=== PATIENT | female | born 1950 | race Caucasian/White ===

== ENCOUNTER → 2018-04-30 | Outpatient (CLI) | payer MEDICARE, OTHER ==
--- NOTE | 2018-05-02 13:45 | PE ---
Nuclear medicine PET/CT HISTORY: Pulmonary nodule, initial Patient received 11.6 mCi F-18 FDG intravenously in delayed scanning was performed from the skull bas e to the mid thighs. Localization and attenuation correction CT scan was performed. No comparisons available Neck and chest: There is no evident adenopathy. Shotty nodes are present within the mediastinum. Ther e is a focus of hypermetabolic uptake corresponding to 11 mm apical soft tissue density in the left h emithorax, SUV 2.2. Irregular density in the left lower lobe measuring 18 mm in transverse dimension with some central lucency is noted, no significant associated hypermetabolic uptake however, SUV 1.8. This may be coursing along the fissure for at least a portion of its course. No evident pleural or p ericardial effusion. Distal esophagus shows an SUV of approximately 3 which is indeterminate Abdomen pelvis: No evident retroperitoneal mass. Adrenal glands show no mass, no suspicious hypermeta bolic uptake. No evident liver mass. Calcification associated with the uterus. There is a bulky appea javan to the uterus, cannot exclude endometrial fluid. Osseous structures: There is some uptake in the right shoulder possibly the level of the subscapulari s tendon near its insertion. IMPRESSION: Hypermetabolic uptake in the left lung apex is indeterminate, follow-up is recommended to assess for possible apical lung carcinoma. Esophageal uptake distally is also indeterminate, conside r endoscopy. Right shoulder obtained may be due to 2 partial rotator cuff tear, shoulder MRI may be o f benefit. Possible fibroid uterus, endometrial fluid, consider pelvic ultrasound, [employer]OR [employer] consult as ind icated. Additional lesion in the left lower lobe of the lung may be postinflammatory.
== END | disposition home or self-care (01) ==
LOC: RADPETMAIN 12:00
PROVIDERS: ATTEND Family Medicine
DX: R91.1 Solitary pulmonary nodule (principal)
CPT/HCPCS: 78815; A9552

== ENCOUNTER → 2018-05-03 | Outpatient (CLI) | payer MEDICARE, OTHER ==
--- NOTE | 2018-05-03 14:53 | MM ---
Reason for exam: follow-up at short interval from prior study. Last mammogram was performed 6 years and 6 months ago. History: Patient is postmenopausal. Family history of breast cancer in 2 paternal aunts at age 60. Physical Findings: Nurse did not find any significant physical abnormalities on exam. MG 3D Diag Mammo W/Cad RT CC and MLO view(s) were taken of the right breast. Prior study comparison: April 20, 2018, mammogram. October 23, 2011, bilateral digital screening mammo w/CAD. September 30, 2010, bilateral diagnostic digital mammog. Finding: There are typically benign round, diffuse/scattered and grouped calcifications in the right breast. No distinct suspicious cluster of microcalcifications persists on additional views. These results were verbally communicated with the patient and result sheet given to the patient on 05/03/18. ASSESSMENT: Benign, BI-RAD 2 RECOMMENDATION: Routine screening mammogram of both breasts in 1 year.
== END | disposition home or self-care (01) ==
LOC: RADMAMWWP 13:29
PROVIDERS: ATTEND Family Medicine
DX: R92.8 Other abnormal and inconclusive findings on diagnostic imaging of breast (principal)
CPT/HCPCS: 77065; G0279; 77061

== ENCOUNTER → 2018-08-17 | Outpatient (CLI) | payer MEDICARE, OTHER ==
--- NOTE | 2018-08-17 15:03 | CT ---
EXAMINATION TYPE: CT chest w con DATE OF EXAM: 08/17/2018 COMPARISON: PET/CT dated 04/30/2018 HISTORY: Follow up for lung mass seen on PET scan. CT DLP: 149.5 mGycm. Automated Exposure Control for Dose Reduction was Utilized. TECHNIQUE: CT scan of the thorax is performed following with IV Contrast, patient injected with 80 m L of Isovue 300. FINDINGS: LUNGS: As seen on the prior PET/CT there is an elongated centrally cystic density along the left inte rlobar fissure. Some internal bronchiectasis. This is elongated measuring 4.9 x 1.3 cm on coronal ser ies 7 image 74 and appears similar to the prior PET/CT where this did not demonstrate suspicious hype rmetabolic uptake. This is also seen on coronal series 6 image 49. Nodule along the left lung apex on series 4 image 5 is also present on coronal series 6 image 50 anai uring approximately 11 mm. This demonstrated equivocal uptake on the prior PET/CT. No current interva l growth. Stable left costophrenic angle solid nodule measures 4 mm on image 45. Right middle lobe pleural parenchymal scarring is seen. No focal consolidation, pleural effusion or p neumothorax. Main tracheobronchial tree is patent. There are mild background emphysematous changes. MEDIASTINUM: Ascending thoracic aorta is within normal limits of size measuring 3.2 cm. Aortic root m easures 3.3 cm, also within normal limits. Minimal coronary artery calcifications are present. Athero sclerosis is noted of the thoracic aorta and upper abdominal aorta that is overall mild in degree. Th ere are no greater than 1 cm hilar or mediastinal lymph nodes. No pericardial effusion is seen. OTHER: Focal cortical defect is seen of the posterior medial left kidney, likely from prior injury. P unctate gallbladder fundal cholelith is present. Nonspecific punctate hypoattenuated hepatic lesion i s seen near the hepatic dome on image 40. There is a very small hiatal hernia present. Minimal multil evel degenerative changes of the spine are seen. IMPRESSION: 1. Stable left apical pulmonary nodule and left costophrenic angle pulmonary nodule. Left apical pulm onary nodule is indeterminate on the recent PET/CT but has demonstrated stability from 04/30/2018. Cont inued short-term follow-up is recommended to establish long-term stability. 2. Multicystic somewhat cavitary density within the left lower lobe along the interlobar fissure with varicose bronchiectasis may be postinfectious or inflammatory and demonstrated no suspicious uptake on the recent PET/CT.
== END | disposition home or self-care (01) ==
LOC: RADCTMAIN 13:29
PROVIDERS: ATTEND Internal Medicine Pulmonary Disease
DX: R91.1 Solitary pulmonary nodule (principal); J44.9 Chronic obstructive pulmonary disease, unspecified
CPT/HCPCS: 82565; 84520; 71260; 36415; Q9967

== ENCOUNTER → 2019-03-22 | Outpatient (CLI) | payer MEDICARE, OTHER ==
[2019-03-22 11:12] LABS: Anion Gap 7 mmol/L; Blood Urea Nitrogen 19 mg/dL (7-17); Carbon Dioxide 28 mmol/L (22-30); Chloride 106 mmol/L (98-107); Potassium 3.9 mmol/L (3.5-5.1); Sodium 141 mmol/L (137-145)
[2019-03-22 11:25] LABS: Basophils # (A) 0.1 k/uL (0-0.2); Basophils % (A) 1 %; Eosinophils # (A) 0.2 k/uL (0-0.7); Eosinophils % (A) 2 %; HCT 47.5 % (34.0-46.0); HGB 15.1 gm/dL (11.4-16.0); Lymphocytes # (A) 3.3 k/uL (1.0-4.8); Lymphocytes % (A) 41 %; MCH 29.4 pg (25.0-35.0); MCHC 31.7 g/dL (31.0-37.0); MCV 92.8 fL (80.0-100.0); Mean Platelet Volume 7.3; Monocytes # (A) 0.3 k/uL (0-1.0); Monocytes % (A) 4 %; Neutrophils % (A) 50 %; Platelet Count 253 k/uL (150-450); RBC 5.12 m/uL (3.80-5.40); RDW 15.2 % (11.5-15.5); WBC 7.9 k/uL (3.8-10.6)
== END | disposition home or self-care (01) ==
LOC: LABPAT 10:00
PROVIDERS: ATTEND Obstetrics & Gynecology Obstetrics
DX: Z01.810 Encounter for preprocedural cardiovascular examination (principal); R19.09 Other intra-abdominal and pelvic swelling, mass and lump
CPT/HCPCS: 36415; 80051; 82565; 84520; 85025; 86850; 86900; 86901; 87086; 93005

== ENCOUNTER 2019-03-28 05:53 | Day surgery (SDC) | payer MEDICARE, OTHER ==
--- NOTE | 2019-03-24 10:15 | HP ---
HISTORY AND PHYSICAL Preoperative H and P for surgery on 03/28/2019. This is a pleasant female that presents to discuss the ultrasound findings. Patient is a known patient of Dr. Villegas. She had an ultrasound revealing a 3.6 x 3.0 x 3.6, solid right ovarian mass, initially noted in July of 2018 with negative ESE testing. She wished expectant management given the negative testing and presented again for followup ultrasound once again revealing this solid right ovarian mass. The patient wishes definitive treatment. The patient does have a history of bladder mesh that was performed years ago and a history of a left salpingo-oophorectomy for an ectopic years ago. The patient wishes hysterectomy with oophorectomy at the same time. PAST MEDICAL HISTORY: Patient's past medical history is significant for COPD, colon and bowel trouble, hyperlipidemia, and lupus. PAST SURGICAL HISTORY: 1. Appendectomy. 2. Bladder sling. 3. Cataract surgery. 4. Colonoscopy. 5. Hemorrhoid banding. 6. Neck lift. 7. Tonsillectomy. 8. Ectopic , exploratory laparoscopy. 9. Wrist surgery. MEDICATIONS: She is on vitamin D 50,000 units one capsule daily. ALLERGIES: No known drug allergies. No known environmental allergies. FAMILY MEDICAL HISTORY: She has a history of diabetes in her father, colon cancer in her mother and hyperlipidemia in her father. REPRODUCTIVE HISTORY: Last menstrual period was October of 1998. She is a 2, para 1-0-1-1. This delivery was in 1970 and vaginal and in 1973 when she had her ectopic . SOCIAL HISTORY: She is a current smoker. She denies alcohol or illicit drug use. REVIEW OF SYSTEMS: She denies body aches, night sweats, or weight loss. She denies diarrhea, constipation or bloody stools. She denies urinary urgency, frequency, dysuria or incontinence symptoms. She denies anxiety or depression. Vital signs were stable on this visit with a blood pressure of 120/68 and normal pulse. Weight of 135, BMI of 26. PHYSICAL EXAMINATION: On physical exam, she is a well-nourished, well-developed, alert female in no acute distress. Heart is noted to have a regular rate and rhythm. Lungs are clear to auscultation bilaterally. There is no lower extremity edema. ASSESSMENT: Ovarian mass, right. PLAN: Plan is for robotic assisted vaginal hysterectomy with right salpingo-oophorectomy, diagnostic cystoscopy with possible open procedure to complete. Risks were reviewed with the patient in detail including, but not limited to infection, bleeding, damage to bladder, bowel, ureteric or other pelvic structures. Patient states understanding of these risks and wishes to proceed. Surgery was scheduled with Matthew in our office and she will present on March 28 for robotic assisted vaginal hysterectomy, right salpingo- oophorectomy, diagnostic cystoscopy. MMODL / IJN: [id number] /
[~2019-03-28 05:53] MED LIST: DEXAMETHASONE SOD PHOSPHATE 10 MG/ML 1 ML VIAL IV ONE; MIDAZOLAM 2 MG/2 ML VIAL IV PRN; ONDANSETRON 4 MG/2 ML VIAL IVP ONE; SCOPOLAMINE 1.5MG/72HR PATCH TRANSDERM ONE; ceFAZolin IN SWFI 2 GM/20 ML SYRINGE IVP ONE
[2019-03-28] MEDS: LIDOCAINE 1% 20 ML VIAL (10MG/ML) FOR IV START INTRADERMA ONE ×2 (06:29→06:43)
[2019-03-28] MEDS: LACTATED RINGERS 1,000 ML IV SCH ×2 (06:29→06:42)
[2019-03-28] MEDS ORDERED: GLYCOPYRROLATE 0.2 MG/ML 2 ML VIAL ONE (07:32)
[2019-03-28] MEDS ORDERED: LIDOCAINE 1% INJ 10MG/ML (20 ML MDV) ONE (07:32)
[2019-03-28] MEDS ORDERED: NEOSTIGMINE 1 MG/ML 10 ML VIAL ONE (07:32)
[2019-03-28] MEDS ORDERED: fentaNYL (PF) 50 MCG/ML 2 ML AMP ONE (07:32)
[2019-03-28] MEDS ORDERED: ROCURONIUM BROMIDE 10 MG/ML 10 ML VIAL IV ONE (07:32)
[2019-03-28] MEDS ORDERED: MIDAZOLAM 2 MG/2 ML VIAL ONE (07:32)
[2019-03-28] MEDS ORDERED: PROPOFOL 10 MG/ML 20 ML VIAL IV ONE (07:32)
[2019-03-28] MEDS ORDERED: BUPIVACAINE (PF) 0.25% 30 ML VIAL SQ ONE (08:35)
[2019-03-28] MEDS ORDERED: LACTATED RINGERS 1,000 ML IV ONE (09:06)
[2019-03-28] MEDS ORDERED: IBUPROFEN 600 MG TAB PO PRN (09:13)
[2019-03-28] MEDS ORDERED: Acetaminophen-Codeine 300-30mg TAB PO PRN ×2 (09:13)
--- NOTE | 2019-03-28 09:13 | P.OP ---
Date of Procedure: 03/28/19 Preoperative Diagnosis: Pelvic mass Postoperative Diagnosis: Same Procedure(s) Performed: Robotic-assisted vaginal hysterectomy with right salpingo-oophorectomy, diagnostic cystoscopy Anesthesia: GETA Surgeon: Piper Tobar Cloth Worker #1: Asher Martínez Estimated Blood Loss (ml): 5 IV fluids (ml): 1,100 Urine output (ml): 1,500 Pathology: other (Uterus cervix right ovary and fallopian tube) Condition: stable Disposition: PACU Indications for Procedure: Solid right ovarian mass with negative Serenity testing Operative Findings: Enlarged right ovary freely mobile upper abdomen normal in nature left ovary is surgically absent from prior ectopic surgery, cystoscopy normal in nature Description of Procedure: Patient seen in the preoperative area and informed consent is obtained. Previously in the office she was consulted on the risks of surgery including but not limited to infection, bleeding, damage to bladder, bowel, other pelvic structures. Patient stated understanding and wished to proceed. Patient was taken operating suite where general anesthesia was obtained without difficulty by the anesthesia department. She was then prepped and draped in normal sterile fashion in the dorsal lithotomy position. Weighted speculum was placed in the posterior vaginal vault and a Orr catheter was placed under sterile technique. The endocervical canal was then dilated and a Promodity uterine manipulator was advanced into the uterus as a means to manipulate the uterus throughout the procedure. The cervical cath was placed snugly against the cervix and all instruments were removed from the patient's vaginal vault. Attention was then turned the patient's abdomen where 2 fingerbreadths above the umbilicus a small skin incision is made. Through this incision the Veress needle is placed. Once the Veress needle was deemed appropriate position with a drop of CO2 pressure with insufflation of CO2 gas CO2 insufflation was allowed to occur. Ap proximately 3 L of gas were used to obtain pneumoperitoneum. At this time the incision was elongated and a 12 mm trocar and sleeve is placed through the incision and toward the pneumoperitoneum with the laparoscope in place. Trocar was removed and the above-noted findings are visualized. At this time the additional port sites are placed at 10 cm lateral and 3 cm inferior to midline port these are millimeter ports and operative intervention machine. In the left upper quadrant a 12 mm trocar and sleeve is placed under direct visualization. At this time the da Bettie robot was docked in the usual fashion. The operative arms are now placed, and the right operative arm the monopolar scissors, in the left operative arm the bipolar forceps is placed. Attention was then turned to the patient's right infundibulopelvic ligament which was visualized coagulated distally and proximally divided this continued through the broad and toward the round which was coagulated distally and proximally divided. The bladder flap from the right was then created using sharp and blunt dissection. The ascending branch the uterine artery was visualized coagulated and transected hemostasis was appreciated. Attention was then turned to the patient's left round ligament as the left adnexa had been previously removed. The round ligament was ligated distally and proximally divided and the bladder flap was then created using sharp and blunt dissection. The ascending branch of the uterine artery was visualized coagulated and transected. Hemostasis was appreciated. At this time the only remaining attachment was a vaginal attachment therefore colpotomy incision was made in a circumferential fashion and the uterus right ovary and tube were delivered through the vaginal opening. The pelvis was then copiously irrigated and the vaginal cuff was then closed with [id number] sutures of 0 Vicryl. Hemostasis was appreciated. Once again the pelvis was copiously irrigated hemostasis was appreciated in all instruments were removed from the patient's abdomen. Attention was then turned the patient's vaginal vault the Orr catheter was removed and a cystoscopy was performed. The cystoscope was placed through the urethra and toward the bladder bladder bubble was noted the bladder was noted to be intact and both ureteral orifices were spilling clear yellow urine. The cystoscope was removed and a Orr catheter was replaced. Attention then turned the patient's abdomen where the skin incisions were closed with 4-0 Vicryl in a subcuticular fashion Steri-Strips and sterile dressings were applied as needed. All counts are correct 2 patient tolerated procedure well and was taken the recovery room awake in stable condition.
[2019-03-28] MEDS ORDERED: IBUPROFEN IV 800 MG in SODIUM CHLORIDE 0.9% 250 ML IV ONE (09:15)
[2019-03-28] MEDS: HYDROmorphone 0.5 MG/0.5 ML SYRINGE IVP PRN ×2 (09:40→09:45)
[2019-03-28 11:09] VITALS: BMI 27.3
[2019-03-28 23:33] VITALS: TEMP 98.4
[2019-03-29 04:15] VITALS: PULSE 57
[2019-03-29 07:03] LABS: Basophils % (A) 0 %; Eosinophils # (A) 0.1 k/uL (0-0.7); Eosinophils % (A) 1 %; HCT 39.9 % (34.0-46.0); HGB 12.6 gm/dL (11.4-16.0); Lymphocytes # (A) 3.1 k/uL (1.0-4.8); Lymphocytes % (A) 25 %; MCH 29.5 pg (25.0-35.0); MCHC 31.6 g/dL (31.0-37.0); MCV 93.3 fL (80.0-100.0); Mean Platelet Volume 7.3; Monocytes # (A) 0.5 k/uL (0-1.0); Monocytes % (A) 4 %; Neutrophils # (A) 8.8 k/uL (1.3-7.7); Neutrophils % (A) 70 %; Platelet Count 250 k/uL (150-450); RBC 4.27 m/uL (3.80-5.40); RDW 15.3 % (11.5-15.5); WBC 12.7 k/uL (3.8-10.6)
[2019-03-29 07:58] VITALS: BP 100/66; RESP 18
--- NOTE | 2019-03-29 08:25 | P.DS ---
Providers Date of admission: 03/28/2019 Expected date of discharge: 03/29/19 Attending physician: Piper Tobar Primary care physician: Adam Mendez - Discharge Diagnosis(es) (1) Pelvic mass Current Visit: Yes Status: Acute (2) S/P laparoscopic hysterectomy Current Visit: Yes Status: Acute Hospital Course: This is a very pleasant 68-year-old female that presented for robotic-assisted vaginal hysterectomy with right salpingo-oophorectomy yesterday 03/28. Patient underwent surgery without difficulty for details on the operation please see the operative report. Patient had a known right pelvic mass approximately 3 cm solid-appearing ovarian mass with negative Rudolph testing. She desired definitive treatment given size and solid in nature with hysterectomy. As stated above hysterotomy was preformed without difficulty. Patient's postoperative course has been uneventful. She is ambulating and voiding without difficulty on this postop day #1. She is tolerating a regular diet without nausea or vomiting. She denies vaginal bleeding. She denies pain. She does wish discharge home. Patient Condition at Discharge: Good Plan - Discharge Summary Discharge Rx Participant: Yes New Discharge Prescriptions: No Action Sulfamethox-Tmp 800-160Mg [Bactrim DS 800-160 mg] 1 tab PO MOWEFR Discharge Medication List Sulfamethox-Tmp 800-160Mg [Bactrim DS 800-160 mg] 1 tab PO MOWEFR 03/22/19 [History] Follow up Appointment(s)/Referral(s): Piper Tobar DO [Doctor of Osteopathic Medicine] - 2 Weeks Patient Instructions/Handouts: Laparoscopic Hysterectomy (DC), Laparoscopic Hysterectomy (GEN) Discharge Disposition: HOME SELF-CARE
[2019-03-29] MEDS ORDERED: SULFAMETHOX-TMP 800-160MG 1 EACH TAB PO SCH (09:00)
== END 2019-03-29 10:17 | disposition home or self-care (01) ==
LOC: OR 05:53 → 4FBP 09:16 → OR 03-29 10:17
PROVIDERS: ATTEND Obstetrics & Gynecology Obstetrics
DX: N94.9 Unspecified condition associated with female genital organs and menstrual cycle (principal); J44.9 Chronic obstructive pulmonary disease, unspecified; E78.5 Hyperlipidemia, unspecified; M32.9 Systemic lupus erythematosus, unspecified; Z98.890 Other specified postprocedural states; N85.8 Other specified noninflammatory disorders of uterus; D27.0 Benign neoplasm of right ovary; Z80.0 Family history of malignant neoplasm of digestive organs; Z83.3 Family history of diabetes mellitus; F17.210 Nicotine dependence, cigarettes, uncomplicated
CPT/HCPCS: 58550; S2900; 85025; 86850; 86900; 86901; 88309

== ENCOUNTER → 2019-05-29 | Outpatient (CLI) | payer MEDICARE, OTHER ==
--- NOTE | 2019-05-29 11:13 | CT ---
EXAMINATION TYPE: CT chest w con DATE OF EXAM: 05/29/2019 COMPARISON: Chest CT August 17, 2018. PET CT April 30, 2018 HISTORY: Follow up scan per patient CT DLP: 150.2 mGycm. Automated Exposure Control for Dose Reduction was Utilized. TECHNIQUE: CT scan of the thorax is performed following with IV Contrast, patient injected with 100 mL of Isovue 300. FINDINGS: LUNGS: There is stable 10 x 6 mm left apical nodular scarring axial image 7. There is stable anterior right mid to lower lung linear scarring or axial image 35. There is persistent linear scarring infer iorly in the left lung base. Just superior to this there is more focal honeycombing and scarring abut ting the major fissure in the anterior left lower lobe not significantly changed from prior CT and/or PET/CT. Additional linear scarring superior to this in the lingula and left lower lobe is redemonstr ated. No new nodules or masses are present. No pleural effusion or pneumothorax is seen. MEDIASTINUM: There are no new greater than 1 cm hilar or mediastinal lymph nodes. No cardiomegaly o r pericardial effusion is seen. OTHER: Mild multilevel spurring thoracic spine. IMPRESSION: Stable left lung findings favoring inflammatory change or scarring. No new suspicious nod ules or adenopathy.
== END | disposition home or self-care (01) ==
LOC: RADCTMAIN 09:15
PROVIDERS: ATTEND Internal Medicine
DX: J98.4 Other disorders of lung (principal); R91.8 Other nonspecific abnormal finding of lung field; Z72.0 Tobacco use
CPT/HCPCS: 82565; 84520; 71260; 36415; Q9967

== ENCOUNTER → 2019-06-28 | Outpatient (CLI) | payer MEDICARE, OTHER ==
--- NOTE | 2019-06-29 11:34 | MM ---
Reason for exam: screening (asymptomatic). Last mammogram was performed 1 year and 2 months ago. History: Patient is postmenopausal. Family history of breast cancer in 2 paternal aunts at age 60. Physical Findings: A clinical breast exam by your physician is recommended on an annual basis and results should be correlated with mammographic findings. MG 3D Screening Mammo W/Cad Bilateral CC and MLO view(s) were taken. Prior study comparison: May 03, 2018, right breast MG 3d diag mammo w/cad RT. April 20, 2018, mammogram. The breast tissue is extremely dense which could obscure a lesion on mammography. There are two groups of right calcifications in the upper central right breast at middle depth measuring 5mm and 6mm. Benign appearing left calcifications. Right central upper architectural distortion 5.5-6cm from nipple. ASSESSMENT: Incomplete: need additional imaging evaluation, BI-RAD 0 RECOMMENDATION: Special view mammogram of the right breast. If lesion persists on supplemental views, image directed ultrasound is recommended. [facility] will attempt to contact patient to return for supplemental views and ultrasound if indicated.
== END ==
LOC: RADMAMWWP 09:38
PROVIDERS: ATTEND Family Medicine
DX: Z12.31 Encounter for screening mammogram for malignant neoplasm of breast (principal)
CPT/HCPCS: 77063; 77067

== ENCOUNTER → 2019-08-04 | Outpatient (CLI) | payer MEDICARE, OTHER ==
--- NOTE | 2019-08-04 12:30 | MM ---
Reason for exam: additional evaluation requested from abnormal screening. Last mammogram was performed 1 month ago. History: Patient is postmenopausal. Family history of breast cancer in 2 paternal aunts at age 60. Physical Findings: Nurse Summary: 0.5cm nodule in the right breast at 12 o'clock (nurse kp). MG 3D Work Up W/Cad RT Spot compression CC, CC with magnification, LM with magnification, and LM view(s) were taken of the right breast. Prior study comparison: June 28, 2019, bilateral MG 3d screening mammo w/cad. May 03, 2018, right breast MG 3d diag mammo w/cad RT. The breast tissue is extremely dense which could obscure a lesion on mammography. There are two heterogeneous group of calcifications of the upper outer quadrant similar to 2018. These both measure 7mm on the right. Right distortion of the upper outer quadrant at 12 o'clock and 1 o'clock 6.8cm from nipple. These results were verbally communicated with the patient and result sheet given to the patient on 08/04/19. ASSESSMENT: Incomplete: need additional imaging evaluation, BI-RAD 0 RECOMMENDATION: Ultrasound of the right breast.
--- NOTE | 2019-08-04 12:34 | USB ---
Reason for exam: additional evaluation requested from abnormal screening. History: Patient is postmenopausal. Family history of breast cancer in 2 paternal aunts at age 60. US Breast Workup Limited RT Right limited breast ultrasound including focal area of concern, retroareolar and axilla demonstrates peaks of dense tissue appear as mass in one plane only. Dense heterogeneous tissue is seen with no certain sonographic correlate. Mammographic findings are suspicious and 3D biopsy is recommended of the distortion as well as the upper outer quadrant calcifications at middle depth. These results were verbally communicated with the patient and result sheet given to the patient on 08/04/19. ASSESSMENT: Suspicious, BI-RAD 4 RECOMMENDATION: Stereotactic core biopsy of the right breast. (x 2, lateral calcifications and medial distortion) Called Dr. Anaya office with mammographic findings. Office will fax reports to [facility] to contact patient with appointment. PRELIMINARY REPORT CALLED AND FAXED TO DR. ANAYA ON 08/04/19.
== END | disposition home or self-care (01) ==
LOC: RADMAMWWP 10:01
PROVIDERS: ATTEND Family Medicine
DX: R92.8 Other abnormal and inconclusive findings on diagnostic imaging of breast (principal)
CPT/HCPCS: 77065; 76642; G0279; 77061

== ENCOUNTER → 2019-10-12 | Outpatient (CLI) | payer MEDICARE, OTHER ==
[2019-10-12 13:57] VITALS: BP 138/78; PULSE 84; RESP 18; TEMP 97.7
--- NOTE | 2019-10-12 15:21 | P.GSHP ---
History of Present Illness H&P Date: 10/12/19 Chief Complaint: abnormal mammogram right breast/atypia on biopsy Berna is a 69-year-old white female who presents for breast evaluation, she is seen in consultation for Dr. Mendez. She had a bilateral mammogram performed in June 2019 for routine screening. On the mammogram there were 2 groups of right breast calcifications in the upper central breast. She was noted to have benign left breast calcifications. The patient had additional views of the right breast performed on [id number]. the patient had 2 areas in the right breast for which biopsy was recommended. One was an area of microcalcifications, and the second an area of distortion. That which was the area of distortion revealed atypical cells in the area of calcification revealed benign breast tissue.This was still felt to be incomplete and ultrasound of the right breast was recommended. On ultrasound including the focal area of concern, retroareolar and axilla demonstrated peaks of dense breast tissue. Mammographic findings were suspicious and 3-D biopsy related to the mammographic findings as well as the upper outer quadrant calcifications were recommended. Stereotactic core biopsy of the right breast 2 lateral calcifications and medial distortion was recommended. The patient subsequently underwent 3-D stereotactic core biopsy of the right breast on 1030 119. The irritable distortion upper outer quadrant middle depth is labeled #1. This revealed atypical ductal hyperplasia and features suggestive of a radial scar. The area labeled right breast #2 calcifications revealed florid ductal hyperplasia and fibrocystic change sclerosing adenosis with intraductal and stromal calcifications, no atypical hyperplasia or malignancy identified. The patient does not feel any masses lumps or nodules in either breast. She has no history of any trauma in her breasts. No history of any infection in her breast. No abnormal nipple discharge or skin changes. The mammogram was performed for screening. The patient was noted to have a pulmonary nodule in the left lung which has been stable for the last year and a half. computed tomography scan from May 2019 revealed the following.This is a 10 x 6 mm left apical nodular scarring area. There is persistent linear scarring inferiorly in the left lung base. Just superior to this. His multifocal honeycombing and scarring abutting the major fissure in the anterior left lower lobe not significantly changed from prior CT and a PET/CT. There were no greater than 1 cm hilar mediastinal lymph nodes. Family History: mother: colon cancer brother: kidney cancer paternal aunts (two): breast cancer maternal aunt: cancer Hormonal History: menarche: 11 , 1 tubal, breast fed: no, first born at 21 menopause: 49 BCP: none hormones: none Surgical history: Ectopic Appendectomy Hysterectomy Tonsillectomy Right breast medical history: colon polyps Social history: Smoke: 1/2 PPD 50 years alcohol: none drugs: none - Constitutional Constitutional: Denies chills, Denies fever - EENT Comment: glasses, cataracts bilateral Eyes: denies blurred vision, denies pain Ears: deny: decreased hearing, tinnitus Ears, nose, mouth and throat: Denies headache, Denies sore throat - Breasts Breasts: bilateral: as per HPI - Cardiovascular Cardiovascular: Reports shortness of breath, Denies chest pain - Respiratory Comment: smoker Respiratory: Reports cough - Gastrointestinal Gastrointestinal: Denies abdominal pain, Denies diarrhea, Denies nausea, Denies vomiting - Genitourinary (Female) Genitourinary: Denies dysuria, Denies hematuria - Menstruation Menstruation: Reports post hysterectomy - Musculoskeletal Comment: arthritis - Integumentary Comment: lupus - Neurological Neurological: Denies numbness, Denies weakness - Psychiatric Psychiatric: Denies anxiety, Denies depression - Endocrine Endocrine: Reports fatigue, Reports weight change - Hematologic/Lymphatic Comment: none - Allergic/Immunologic Allergic/Immunologic: Reports as per HPI Past Medical History Past Medical History: COPD, Hyperlipidemia Additional Past Medical History / Comment(s): has not yet started meds for lipids, hx of colon polyps, hx of frequent UTI, Hx shingles, states was told had COPD, does not use any RX History of Any Multi-Drug Resistant Organisms: None Reported Past Surgical History: Appendectomy, Bladder Surgery, Orthopedic Surgery, Tonsillectomy Additional Past Surgical History / Comment(s): left oopherectomy post tubal , rt wrist sx, alma rosa cataracts Past Anesthesia/Blood Transfusion Reactions: No Reported Reaction Past Psychological History: No Psychological Hx Reported Smoking Status: Current every day smoker Past Alcohol Use History: Occasional Additional Past Alcohol Use History / Comment(s): smokes 1/2 ppd from age 17 Past Drug Use History: None Reported - Past Family History Mother Family Medical History: Cancer Brother(s) Family Medical History: Cancer Additional Family Medical History / Comment(s): kidney Medications and Allergies Home Medications Medication Instructions Recorded Confirmed Type Sulfamethox-Tmp 800-160Mg [Bactrim 1 tab PO MOWEFR 03/22/19 10/12/19 History DS 800-160 mg] Multivitamin [Multivitamins Adult 1 each PO DAILY 10/12/19 10/12/19 History Gummies] Allergies Allergy/AdvReac Type Severity Reaction Status Date / Time adhesive tape AdvReac Rash/Hives Unverified 10/12/19 13:57 Surgical - Exam Vital Signs Temp Pulse Resp BP Pulse Ox 97.7 F 84 18 138/78 92 L 10/12/19 13:53 10/12/19 13:53 10/12/19 13:53 10/12/19 13:53 10/12/19 13:53 BMI 27.5 - General well developed, well nourished, no distress - Eyes normal ocular movement - ENT normal pinna, no hearing loss, no congestion - Neck no masses, trachea midline - Respiratory normal expansion, normal respiratory effort, clear to auscultation - Cardiovascular Rhythm: regular Heart Sounds: normal: S1, S2 - Abdomen Abdomen: soft, non tender, no guarding, no rigid, no rebound - Integumentary normal turgor - Neurologic no disoriented, no combative - Musculoskeletal normal gait, normal posture - Psychiatric oriented to time, oriented to person, oriented to place, speech is normal, memory intact breast exam: right breast: Multi-positional exam fibrocystic changes, right breast slightly smaller than left breast no dominant masses or nodules of concern Right axilla: No adenopathy of concern Left breast: Multi-positional exam fibrocystic changes, no dominant masses or notches of concern Left axilla: No adenopathy of concern BRA 36D ptosis grade2/3 Results mammogram and ultrasound results reviewed as well as pathology results Assessment and Plan Assessment: impression: 1. Mammographic abnormality right breast 2. core biopsy of 2 areas of concern in the right breast, densely revealed atypical cells, calcifications benign breast tissue. 3. Fibrocystic breast changes 4. Stable left pulmonary nodule followed by CT 5. Nicotine dependence 6.history of lupus 7. Question of cervical arthritis Plan: 1. Needle localization and excisional biopsy of area of atypia in the area of distortion of the right breast 2. Medical management of medical conditions Risk and benefits of procedure discussed with the patient and her friend. They understand and wish to proceed Cc: Dr. Andrea Dupont Encounter 45 minutes > 50% spent in counselling and planning
== END | disposition home or self-care (01) ==
LOC: WWCWWP 13:19
PROVIDERS: ATTEND Surgery
DX: Z53.9 Procedure and treatment not carried out, unspecified reason (principal)

== ENCOUNTER → 2019-12-07 | Outpatient (CLI) | payer MEDICARE, OTHER ==
[2019-12-07 13:16] VITALS: BP 146/78; PULSE 86; RESP 16; TEMP 98
--- NOTE | 2019-12-07 13:36 | P.PN ---
Subjective Progress Note Date: 12/07/19 Principal diagnosis: Atypical hyperplasia core biopsy right breast Berna is a 69-year-old white female who presents for breast evaluation, she is seen in consultation for Dr. Mendez. She had a bilateral mammogram performed in June 2019 for routine screening. On the mammogram there were 2 groups of right breast calcifications in the upper central breast. She was noted to have benign left breast calcifications. The patient had additional views of the right breast performed on [id number]. the patient had 2 areas in the right breast for which biopsy was recommended. One was an area of microcalcifications, and the second an area of distortion. That which was the a dm of distortion revealed atypical cells in the area of calcification revealed benign breast tissue.This was still felt to be incomplete and ultrasound of the right breast was recommended. On ultrasound including the focal area of concern, retroareolar and axilla demonstrated peaks of dense breast tissue. Mammographic findings were suspicious and 3-D biopsy related to the mammographic findings as well as the upper outer quadrant calcifications were recommended. Stereotactic core biopsy of the right breast 2 lateral calcifications and medial distortion was recommended. The patient subsequently underwent 3-D stereotactic core biopsy of the right breast on 1030 119. The irritable distortion upper outer quadrant middle depth is labeled #1. This revealed atypical ductal hyperplasia and features suggestive of a radial scar. The area labeled right breast #2 calcifications revealed florid ductal hyperplasia and fibrocystic change sclerosing adenosis with intraductal and stromal calcifications, no atypical hyperplasia or malignancy identified. The patient does not feel any masses lumps or nodules in either breast. She has no history of any trauma in her breasts. No history of any infection in her breast. No abnormal nipple discharge or skin changes. The mammogram was performed for screening. The patient was noted to have a pulmonary nodule in the left lung which has been stable for the last year and a half. computed tomography scan from May 2019 revealed the following.This is a 10 x 6 mm left apical nodular scarring area. There is persistent linear scarring inferiorly in the left lung base. Just superior to this. His multifocal honeycombing and scarring abutting the major fissure in the anterior left lower lobe not significantly changed from prior CT and a PET/CT. There were no greater than 1 cm hilar mediastinal lymph nodes. The area showing atypia is insight a biopsy which has a secure phcu placed The second biopsy site in the right breast is site to be which has a try phuc placed this showed ductal hyperplasia but no atypia or malignancy Family History: mother: colon cancer brother: kidney cancer paternal aunts (two): breast cancer maternal aunt: cancer Hormonal History: menarche: 11 , 1 tubal, breast fed: no, first born at 21 menopause: 49 BCP: none hormones: none Surgical history: Ectopic Appendectomy Hysterectomy Tonsillectomy Right breast medical history: colon polyps Social history: Smoke: 1/2 PPD 50 years alcohol: none drugs: none - Constitutional Constitutional: Denies chills, Denies fever - EENT Comment: glasses, cataracts bilateral Eyes: denies blurred vision, denies pain Ears: deny: decreased hearing, tinnitus Ears, nose, mouth and throat: Denies headache, Denies sore throat - Breasts Breasts: bilateral: as per HPI - Cardiovascular Cardiovascular: Reports shortness of breath, Denies chest pain - Respiratory Comment: smoker Respiratory: Reports cough - Gastrointestinal Gastrointestinal: Denies abdominal pain, Denies diarrhea, Denies nausea, Denies vomiting, colonoscopy October 23 told good for 5 years - Genitourinary (Female) Genitourinary: Denies dysuria, Denies hematuria - Menstruation Menstruation: Reports post hysterectomy - Musculoskeletal Comment: arthritis - Integumentary Comment: lupus - Neurological Neurological: Denies numbness, Denies weakness - Psychiatric Psychiatric: Denies anxiety, Denies depression - Endocrine Endocrine: Reports fatigue, Reports weight change - Hematologic/Lymphatic Comment: none - Allergic/Immunologic Allergic/Immunologic: Reports as per HPI Past Medical History Past Medical History: COPD, Hyperlipidemia Additional Past Medical History / Comment(s): has not yet started meds for lipids, hx of colon polyps, hx of frequent UTI, Hx shingles, states was told had COPD, does not use any RX History of Any Multi-Drug Resistant Organisms: None Reported Past Surgical History: Appendectomy, Bladder Surgery, Orthopedic Surgery, Tonsillectomy Additional Past Surgical History / Comment(s): left oopherectomy post tubal , rt wrist sx, alma rosa cataracts Past Anesthesia/Blood Transfusion Reactions: No Reported Reaction Past Psychological History: No Psychological Hx Reported Smoking Status: Current every day smoker Past Alcohol Use History: Occasional Additional Past Alcohol Use History / Comment(s): smokes 1/2 ppd from age 17 Past Drug Use History: None Reported Objective - Vital Signs Vital signs: Intake & Output 12/06/19 12/07/19 12/07/19 18:59 06:59 18:59 Weight 61.235 kg - Exam BMI 27.3 - Constitutional General appearance: Present: average body habitus - EENT Eyes: Present: EOMI ENT: Present: hearing grossly normal - Respiratory Respiratory: bilateral: CTA - Cardiovascular Rhythm: regular Heart sounds: normal: S1, S2 - Gastrointestinal General gastrointestinal: Present: normal bowel sounds, soft - Musculoskeletal Musculoskeletal: Present: gait normal - Psychiatric Psychiatric: Present: A&O x's 3, appropriate affect, intact judgment & insight - Additional findings Additional findings: breast exam: BRA 36D inspection: no skin lesions of concern, no nipple inversion Right breast: Multi-positional exam fibrocystic changes, right breast slightly smaller than the left breast, biopsy site no evidence of infection small hematoma Right axilla: No adenopathy of concern Left breast: Multi-positional exam fibrocystic changes no dominant masses or nodules of concern from examination of September 2019 left axilla: No adenopathy of concern Assessment and Plan Assessment: Impression: 1. Stereotactic core biopsy 2 areas of concern in the right breast, the site a revealed atypical cells this is marked with a secure phuc Site B reveal calcifications benign breast tissue this is marked with a try marked 2. Fibrocystic breast changes 3. Stable left pulmonary nodule being followed by CT 4. Nicotine dependence 5. History of lupus 6. Question of cervical arthritis Plan: 1. Needle localization and excisional biopsy of area of atypia in the area of distortion site a of the right breast, this is marked with a secure phuc 2. Medical management of medical conditions The skin benefits of the procedure discussed with the patient and her friend. Risks including bleeding and infection reaction to the anesthetic were discussed. Risk possibility of the needle moving and/or the area of concern not been sampled were discussed and that this could require further biopsy down the road. Patient understands and wishes to proceed. CC: Dipti Mcclendon [employer] encounter 20 minutes, > 50% of time in planning and counselling Time with Patient: Less than 30
== END | disposition home or self-care (01) ==
LOC: WWCWWP 12:43
PROVIDERS: ATTEND Surgery
DX: Z53.9 Procedure and treatment not carried out, unspecified reason (principal)

== ENCOUNTER 2019-12-19 07:05 | Day surgery (SDC) | payer MEDICARE, OTHER ==
[2019-12-18 08:47] VITALS: BMI 27.2
[~2019-12-19 07:05] MED LIST changes: +HEPARIN SODIUM,PORCINE 5,000 UNIT/ML 1 ML VIAL SQ ONE; +HYDROmorphone 0.5 MG/0.5 ML SYRINGE IVP PRN; +LACTATED RINGERS 1,000 ML IV SCH; +LIDOCAINE 1% 20 ML VIAL (10MG/ML) FOR IV START INTRADERMA PRN; -MIDAZOLAM 2 MG/2 ML VIAL IV PRN; +Pre Op ABX Message 1 EACH MISC MISCELLANE ONE; -ceFAZolin IN SWFI 2 GM/20 ML SYRINGE IVP ONE
[2019-12-19] MEDS ORDERED: ALPRAZolam 0.25 MG TAB PO ONE (07:45)
[2019-12-19 07:49] VITALS: RESP 16
[2019-12-19] MEDS ORDERED: LIDOCAINE 1% INJ 10MG/ML (20 ML MDV) SQ ONE ×2 (08:54→10:30)
[2019-12-19] MEDS ORDERED: ROCURONIUM BROMIDE 10 MG/ML 5 ML VIAL IV ONE (09:57)
[2019-12-19] MEDS ORDERED: fentaNYL (PF) 50 MCG/ML 2 ML AMP ONE (09:57)
[2019-12-19] MEDS ORDERED: MIDAZOLAM 2 MG/2 ML VIAL ONE (09:57)
[2019-12-19] MEDS ORDERED: NEOSTIGMINE 1 MG/ML 10 ML VIAL ONE (09:57)
[2019-12-19] MEDS ORDERED: PROPOFOL 10 MG/ML 20 ML VIAL IV ONE (09:57)
[2019-12-19] MEDS ORDERED: GLYCOPYRROLATE 0.2 MG/ML 2 ML VIAL ONE (09:57)
[2019-12-19] MEDS ORDERED: LIDOCAINE 1% INJ 10MG/ML (20 ML MDV) ONE (09:57)
[2019-12-19] MEDS ORDERED: DEXAMETHASONE SOD PHOS (MDV) 100 MG/10 ML VIAL ONE (09:57)
[2019-12-19] MEDS ORDERED: SUCCINYLCHOLINE CHLORIDE 100 MG/5 ML SYR IV ONE (09:57)
--- NOTE | 2019-12-19 11:07 | MM ---
EXAMINATION TYPE: MG pre op needle loc RT, MG surgical specimen RT DATE OF EXAM: 12/19/2019 COMPARISON: Outside biopsy dated 08/24/2019 and diagnostic mammogram dated 08/04/2019. CLINICAL HISTORY: Biopsy-proven upper inner quadrant radial scar of the right breast TECHNIQUE: Needle localization with wire placement and surgical excision of area of concern in the right breast. FINDINGS: The procedure of needle localization with wire placement and than surgical excision was explained to the patient. Benefits, alternatives, and risks were discussed. An informed consent was then obtained. Preprocedural timeout was performed. The shortest pathway for procedure was chosen to approach both the biopsy-proven upper inner quadrant radial scar and the more medial second area of architectural distortion that was not previously biopsied. Shortest pathway was CC from above approach. The overlying skin was prepped and draped in usual sterile fashion. 10 cc of 1% lidocaine was used as anesthetic into the skin and subcutaneous tissue up to the level of area of concern. A 5 cm needle was used. It was placed via a CC from above approach under mammographic guidance. Subsequent 90 degrees mammogram show the needle to be in satisfactory position relative to the targeted area. At this point, wire was placed and the needle was withdrawn. The wire was fixed to patient's skin. Images were marked for surgeon. The patient tolerated the procedure well without any immediate complication. The patient was kept in the radiology department for short stay after the procedure and then taken to surgery for surgical excision. Targeted biopsy marker and wire are identified in specimen mammogram. The patient was kept in hospital for short stay after the procedure and then discharged home in stable condition. Findings were communicated with the OR with Nathalia Daigle at 50 8:00 AM on 12/19/2019. IMPRESSION: Successful, uncomplicated needle localization with wire placement and surgical excision of targeted biopsy marker indicating the biopsy-proven radial scar in the right breast, full pathology results to follow. Pathology Results: High Risk RIGHT BREAST, NEEDLE LOCALIZATION EXCISION: Lobular neoplasia (ALH/LCIS) and background proliferative fibrocystic changes sclerosing adenosis with calcifications, radial scar/complex sclerosing lesion and usual type ductal hyperplasia. See note. Recommendation Surgical consult of the right breast. Continued surgical care. Annual high risk screening MRI could be considered. [facility]
--- NOTE | 2019-12-19 11:33 | P.OP ---
Date of Procedure: 12/19/19 Preoperative Diagnosis: Atypia on stereotactic core biopsy Postoperative Diagnosis: Same Procedure(s) Performed: needle Localization excisional biopsy area of concern in the right breast Anesthesia: NEVAEH Surgeon: Babita Kendall Estimated Blood Loss (ml): 7 IV fluids (ml): 400 Pathology: other (breast tissue) Condition: stable Disposition: same day Indications for Procedure: Stereotactic core biopsy atypical right breast at secure phuc location Operative Findings: fibrofatty breast tissue Description of Procedure: Maya is a 69-year-old white female who had a stereotactic core biopsy of 2 areas of concern in the right breast. 78 revealed atypical cells and 16 revealed benign breast tissue site was marked with a suture phuc in this area was needle localized for excision. The risks and benefits discussed with the patient and she wished to proceed with excisional biopsy via a crescent mastopexy. She understood that the procedure was also some asymmetry of the breast. The patient was taken to the operating room following needle localization of the area of concern in the right breast. Biopsy of the skin markings were placed in the preoperative area. Following induction of general anesthesia the right breast was prepped and draped in a sterile fashion. A crescent mastopexy incision was utilized. The apex of the mastopexy was 2 cm above the periareolar edge at 12:00. The markings were placed and the skin was de-epithelialized at this site. The area of the subcutaneous tissue was entered at this. Aspect of the incision. Dissection was carried down to the plane between the subcutaneous tissue and the breast tissue. This was followed cephalad to the needle which was localizing the area. The shaft of the needle was brought into the wound. The tissue at this site was grasped using an Allis clamp. Circumferential dissection was performed being careful to maintain hemostasis using the electrocautery device as well as the Harmonic scalpel. The lesion that was excised was 6 cm x 4 cm. Dissection was carried down to the pectoralis major muscle. The cavity was well irrigated and evaluated for hemostasis. After assured that this was attained titanium clips were placed. The specimen was painted for orientation and sent to x-ray. Radiograph of the specimen revealed the area of concern had been removed. Dissection was performed at the site of the biopsy to facilitate tissue transfer of the medial and lateral pillars of the breast tissue. Dissection was approximately 7 cm x 4 cm medially. Laterally the dissection was 7 cm x 3 cm. For a total of 71 cm of tissue which was mobilized. The deep tissues were closed using 3-0 Vicryl suture. The incision was then closed using 3-0 Vicryl sutures in the subcutaneous tissue and closure of the skin was performed using 4-0 Monocryl. Steri-Strips were applied. Patient tolerated procedure in stable condition. All instrument and sponge counts were correct at the end of the case.
--- NOTE | 2019-12-19 11:34 | P.DS ---
Providers Attending physician: Babita Kendall Primary care physician: Adam Mendez Plan - Discharge Summary Discharge Rx Participant: Yes New Discharge Prescriptions: No Action Sulfamethox-Tmp 800-160Mg [Bactrim DS 800-160 mg] 1 tab PO MOWEFR Multivitamin [Multivitamins Adult Gummies] 1 each PO DAILY Varenicline [Chantix Continuing Pack] 1 mg PO DIRECTED Discharge Medication List Sulfamethox-Tmp 800-160Mg [Bactrim DS 800-160 mg] 1 tab PO MOWEFR 03/22/19 [History] Multivitamin [Multivitamins Adult Gummies] 1 each PO DAILY 10/12/19 [History] Varenicline [Chantix Continuing Pack] 1 mg PO DIRECTED 12/18/19 [History] Follow up Appointment(s)/Referral(s): Babita Kendall MD [STAFF PHYSICIAN] - 1 Week Activity/Diet/Wound Care/Special Instructions: Drive for 24 hours after discharge May shower after 48 hours Discharge Disposition: HOME SELF-CARE
[2019-12-19 11:41] VITALS: TEMP 97
[2019-12-19 13:01] VITALS: BP 111/72; PULSE 59
== END 2019-12-19 13:20 | disposition home or self-care (01) ==
LOC: OR 07:05
PROVIDERS: ATTEND Surgery
DX: D49.3 Neoplasm of unspecified behavior of breast (principal); N60.11 Diffuse cystic mastopathy of right breast; N60.21 Fibroadenosis of right breast; R91.1 Solitary pulmonary nodule; F17.210 Nicotine dependence, cigarettes, uncomplicated; M32.9 Systemic lupus erythematosus, unspecified; J44.9 Chronic obstructive pulmonary disease, unspecified; E78.5 Hyperlipidemia, unspecified; Z78.0 Asymptomatic menopausal state; Z91.09 Other allergy status, other than to drugs and biological substances; Z98.890 Other specified postprocedural states; Z90.49 Acquired absence of other specified parts of digestive tract; Z90.710 Acquired absence of both cervix and uterus; Z90.89 Acquired absence of other organs; Z86.010 Personal history of colon polyps; Z97.3 Presence of spectacles and contact lenses; Z87.440 Personal history of urinary (tract) infections; Z86.19 Personal history of other infectious and parasitic diseases; Z90.721 Acquired absence of ovaries, unilateral; Z87.59 Personal history of other complications of pregnancy, childbirth and the puerperium; Z98.42 Cataract extraction status, left eye; Z98.41 Cataract extraction status, right eye; Z79.2 Long term (current) use of antibiotics; Z79.899 Other long term (current) drug therapy; Z85.3 Personal history of malignant neoplasm of breast; Z80.0 Family history of malignant neoplasm of digestive organs; Z80.51 Family history of malignant neoplasm of kidney; Z80.3 Family history of malignant neoplasm of breast; Z80.9 Family history of malignant neoplasm, unspecified
CPT/HCPCS: 19125; 19126; 88342; 88307; 88341; 76098; 19281; J2250; J1644; J1100 ×2; J2710; J2405; J2001; J3010; J0330; J2704

== ENCOUNTER → 2019-12-28 | Outpatient (CLI) | payer MEDICARE, OTHER ==
[2019-12-28 16:20] VITALS: BP 129/79; PULSE 94; RESP 16; TEMP 98.6
--- NOTE | 2019-12-28 16:25 | P.PN ---
Progress Note - Text Progress Note Date: 12/28/19 Maya is a 69-year-old white female who is status post right breast needle localization and excisional biopsy for a stereotactic core biopsy which revealed atypical ductal hyperplasia. Pathology from the needle local excisional biopsy revealed lobular neoplasia and the background of proliferative fibrocystic changes/sclerosing adenosis with calcification/radial scar/complex sclerosing lesion usual type ductal hyperplasia. The patient related to the breast surgery has no complaints. This is healing well without any complications. The patient however after the procedure in the recovery room noted that her tooth was chipped. She was told she was a difficult intubation. She is uncertain as to why she is a difficult intubation as a year ago she was intubated without difficulty. She states she also had a sore throat following the procedure which lasted for a week and was coughing up some blood. Throat is feeling better at this time. Chela risk analysis: Five-year risk of breast cancer 3.9% compared to 2.2%, lifetime risk 11.6 compared to 6.6% lifetime risk Physical examination: Lungs: Rhonchi bilaterally Heart: Regular rate and rhythm Incision: Clean and dry Examination of the oral cavity reveals that the right front tooth Is broken and she was told this needs to be replaced Impression/plan: 1. With respect of the breast the patient is told that she has increased risk to develop a malignancy secondary to the lobular carcinoma in situ. She was given the option to see medical oncology for possible chemoprevention/ she is going to be scheduled for this 2. Repeat mammogram of the right breast in 6 months 3. Follow-up examination 6 months 4. Patient advocate has been called regarding the difficulty with intubation we're awaiting a return call 5. Patient's brest biopsy slides from [facility] are going to be requested to be reviewed by our pathologist: the second site of biopsy did not show any atypia. to assure that we are in agreement with this the area is going to be reviewed with our pathology department CC: Dr. Mendez
== END ==
LOC: WWCWWP 15:37
PROVIDERS: ATTEND Surgery
DX: Z53.9 Procedure and treatment not carried out, unspecified reason (principal)

== ENCOUNTER → 2020-06-18 | Outpatient (CLI) | payer MEDICARE, OTHER ==
--- NOTE | 2020-06-18 11:34 | MM ---
Reason for exam: follow-up at short interval from prior study. Last mammogram was performed 10 months ago. History: Patient is postmenopausal and has history of high-risk lesion on a previous biopsy at age 69. Family history of breast cancer in 2 paternal aunts at age 60. High risk MG pre op needle loc RT of the right breast, December 19, 2019. Physical Findings: Nurse did not find any significant physical abnormalities on exam. MG 3D Diag Mammo W/Cad RT CC, MLO, and XCCM view(s) were taken of the right breast. Prior study comparison: August 04, 2019, right breast MG 3d work up w/cad RT. June 28, 2019, bilateral MG 3d screening mammo w/cad. The breast tissue is heterogeneously dense. This may lower the sensitivity of mammography. Post operative changes right breast. No suspicious calcifications or masses are seen. These results were verbally communicated with the patient and result sheet given to the patient on 06/18/20. ASSESSMENT: Benign, BI-RAD 2 RECOMMENDATION: Follow-up diagnostic mammogram of both breasts in 2 months. Back on schedule for July 2020.
== END | disposition home or self-care (01) ==
LOC: RADMAMWWP 10:50
PROVIDERS: ATTEND Surgery
DX: R92.8 Other abnormal and inconclusive findings on diagnostic imaging of breast (principal)
CPT/HCPCS: 77065; G0279; 77061

== ENCOUNTER → 2021-01-10 | Outpatient (CLI) | payer MEDICARE, OTHER ==
[2021-01-10 12:45] VITALS: BP 154/86; PULSE 86; RESP 18; TEMP 97.8
--- NOTE | 2021-01-10 13:16 | P.PN ---
Subjective Progress Note Date: 01/10/21 Principal diagnosis: atypical hyperplasia left mammogram Maya is a 69-year-old white female who is status post right breast needle localization and excisional biopsy for a stereotactic core biopsy which revealed atypical ductal hyperplasia. Pathology from the needle local excisional biopsy on 12-19-19 which revealed lobular neoplasia and the background of proliferative fibrocystic changes/sclerosing adenosis with calcification/radial scar/complex sclerosing lesion usual type ductal hyperplasia. The patient related to the breast surgery has no complaints. This is healing well without any complications. The patient however after the procedure in the recovery room noted that her tooth was chipped. She was told she was a difficult intubation. She is uncertain as to why she is a difficult intubation as a year ago she was intubated without difficulty. She states she also had a sore throat following the procedure which lasted for a week and was coughing up some blood. Throat is feeling better at this time. Chela risk analysis: Five-year risk of breast cancer 3.9% compared to 2.2%, lifetime risk 11.6 compared to 6.6% lifetime risk She was seen by Dr. Keyes regarding chemoprophylaxis and opted not to do this. He was given a prescription for anastrozole. She had a right breast mammogram on , this was felt to be benign. Family history: Mother: Colon cancer Brother: Kidney cancer Paternal aunts 2: Breast cancer Maternal aunt colon cancer Hormonal history: Menarche: 11 , one tubal, breast-fed: No, firstborn at 21 control pills: Negative Hormones: Negative Surgical history: Ectopic Appendectomy Hysterectomy Tonsillectomy Right breast surgery Medical history: Colon polyps Social history: Smoked: One half pack per day for 50 years Alcohol: Negative Drugs: Negative Review of systems: HEENT: Negative Breasts: As per HPI Heart: Shortness of breath Respiratory: Smoker GI: Negative : Negative Musculoskeletal: Arthritis Neurologic: Negative Psychiatric: Negative Endocrine: Negative ALLERGIES: As per HPI Objective - Vital Signs Vital signs: Vital Signs Temp 97.8 F 01/10/21 12:43 Pulse 86 01/10/21 12:43 Resp 18 01/10/21 12:43 BP 154/86 01/10/21 12:43 Pulse Ox 97 01/10/21 12:43 Intake & Output 01/09/21 01/10/2121 18:59 06:59 18:59 Weight 57.153 kg - Exam BMI 27.3 - Constitutional General appearance: Present: average body habitus - EENT Eyes: Present: EOMI ENT: Present: hearing grossly normal - Neck Neck: Present: normal ROM - Respiratory Respiratory: bilateral: CTA - Cardiovascular Rhythm: regular Heart sounds: normal: S1, S2 - Gastrointestinal General gastrointestinal: Present: soft - Integumentary Integumentary: Present: normal turgor - Musculoskeletal Musculoskeletal: Present: gait normal - Psychiatric Psychiatric: Present: A&O x's 3, appropriate affect, intact judgment & insight - Additional findings Additional findings: breast exam: BRA: 36D inspection: Asymmetry of the breasts secondary to prior right breast surgery, ptosis right grade 2, ptosis left grade 3 Palpation: Right breast: Multiple position a exam fibrocystic changes, postop changes, no dominant masses or nodules of concern greatest fullness is in the 12 o'clock position related to prior surgery Right axilla: No adenopathy of concern Left breast: Multiple positional exam fibrocystic changes no dominant masses or nodules of concern Left axilla: No adenopathy of concern Assessment and Plan Assessment: Impression: 1. Patient status post right breast needle local excisional biopsy pathology atypical lobular hyperplasia/lobular carcinoma in situ 2. Asymmetry of the breast related to procedure for lobular carcinoma in situ 3. Fibrocystic breast changes 4. Increased risk of breast cancer patient given the option of chemoprophylaxis and has declined at this time 5. Patient due for bilateral mammogram in August 2021 6. Bilateral mammogram on [id number] benign BIRADS 2 Plan: 1. Patient encouraged to stop smoking 2. We have discussed mastopexy secondary to the asymmetry of the breast going to check and see if sure insurance will cover this 3. Repeat bilateral mammogram August 2021 4. patient has opted to not use anestrazole at this time CC: Dr. Mendez Encounter 30 minutes, time spent in physical examination, reviewing records, and counseling.
== END ==
LOC: WWCWWP 12:26
PROVIDERS: ATTEND Surgery
DX: N60.91 Unspecified benign mammary dysplasia of right breast (principal); R92.8 Other abnormal and inconclusive findings on diagnostic imaging of breast; N60.11 Diffuse cystic mastopathy of right breast; N60.12 Diffuse cystic mastopathy of left breast; Z87.59 Personal history of other complications of pregnancy, childbirth and the puerperium; F17.210 Nicotine dependence, cigarettes, uncomplicated

== ENCOUNTER → 2021-09-24 | Outpatient (CLI) | payer MEDICARE, OTHER ==
--- NOTE | 2021-09-26 10:48 | MM ---
Reason for exam: screening (asymptomatic). Last mammogram was performed 1 year and 3 months ago. History: Patient is postmenopausal and has history of high-risk lesion on a previous biopsy at age 69. Family history of breast cancer in 2 paternal aunts at age 60. High risk MG pre op needle loc RT of the right breast, December 19, 2019. Stereotactic core biopsy of the right breast, August 24, 2019. Physical Findings: A clinical breast exam by your physician is recommended on an annual basis and results should be correlated with mammographic findings. MG 3D Screening Mammo W/Cad Bilateral CC and MLO view(s) were taken. Prior study comparison: September 12, 2020, mammogram, performed at [facility]. June 18, 2020, right breast MG 3d diag mammo w/cad RT. August 04, 2019, right breast MG 3d work up w/cad RT. The breast tissue is extremely dense which could obscure a lesion on mammography. Indeterminate calcifications at surgical site right breast and upper outer quadrant left breast zone C. Post operative changes right breast. This finding is changed when compared with previous exams. ASSESSMENT: Incomplete: need additional imaging evaluation, BI-RAD 0 RECOMMENDATION: Special view mammogram of both breasts. [facility] will attempt to contact patient to return for supplemental views.
== END | disposition home or self-care (01) ==
LOC: RADMAMWWP 12:18
PROVIDERS: ATTEND Surgery
DX: Z12.31 Encounter for screening mammogram for malignant neoplasm of breast (principal)
CPT/HCPCS: 77063; 77067

== ENCOUNTER → 2021-10-02 | Outpatient (CLI) | payer MEDICARE, OTHER ==
[2021-10-02 14:48] VITALS: BP 152/77; PULSE 84; RESP 16; TEMP 98.1
--- NOTE | 2021-10-02 15:02 | P.PN ---
Subjective Progress Note Date: 10/02/21 Principal diagnosis: abnormal left breast mammogram Maya is a 71-year-old white female who is status post right breast needle localization and excisional biopsy for a stereotactic core biopsy which revealed atypical ductal hyperplasia. Pathology from the needle local excisional biopsy on 12-19-19 revealed lobular neoplasia and the background of proliferative fibrocystic changes/sclerosing adenosis with calcification/radial scar/complex sclerosing lesion usual type ductal hyperplasia. The patient related to the breast surgery has no complaints. This healed well without any complications. The patient however after the procedure in the recovery room noted that her tooth was chipped. She was told she was a difficult intubation. She is uncertain as to why she is a difficult intubation as a year ago she was intubated without difficulty. She states she also had a sore throat following the procedure which lasted for a week and was coughing up some blood. Throat is feeling better at this time. She had a bilateral mammogram on 09-24-21 after which additional views of both breast were ordered. She had additional views done on 10-02-21 and stero biopsy of the left breast was recommended and right breast repeat in 6 months. She is not complaining of any lumps masses or nodules of concern in either breast. Does not complain of any nipple discharge or skin changes. She was noted to have some "spots" on her lungs and she is recommended to have a PET scan which will be done tomorrow. She was seen by Dr. Keyes regarding chemoprophylaxis and opted not to do this. She was given a prescription for anastrozole but did not get this filled. Family history: Mother: Colon cancer Brother: Kidney cancer Paternal aunts 2: Breast cancer Maternal aunt colon cancer Hormonal history: Menarche: 11 , one tubal, breast-fed: No, firstborn at 21 control pills: Negative Hormones: Negative Surgical history: Ectopic Appendectomy Hysterectomy Tonsillectomy Right breast surgery Medical history: Colon polyps (colonoscopy 1 week ago, 3 polyps told benign, she aspirated at the procedure) Social history: Smoked: One half pack per day for 50 years Alcohol: Negative Drugs: Negative Review of systems: HEENT: Negative Breasts: As per HPI Heart: Shortness of breath Respiratory: Smoker GI: Negative : Negative Musculoskeletal: Arthritis Neurologic: Negative Psychiatric: Negative Endocrine: Negative ALLERGIES: As per HPI Objective - Vital Signs Vital signs: Vital Signs Temp 98.1 F 10/02/21 14:43 Pulse 84 10/02/21 14:43 Resp 16 10/02/21 14:43 BP 152/77 10/02/21 14:43 Pulse Ox Intake & Output 10/01/21 10/02/21 10/02/21 18:59 06:59 18:59 Weight 56.699 kg - Constitutional General appearance: Present: cooperative - EENT Eyes: Present: EOMI ENT: Present: hearing grossly normal - Neck Neck: Present: normal ROM - Respiratory Respiratory: bilateral: CTA - Cardiovascular Rhythm: regular Heart sounds: normal: S1, S2 - Gastrointestinal General gastrointestinal: Present: soft - Integumentary Integumentary: Present: normal turgor - Musculoskeletal Musculoskeletal: Present: gait normal - Psychiatric Psychiatric: Present: A&O x's 3, appropriate affect, intact judgment & insight - Additional findings Additional findings: Breast Exam: BRA: 34C inspection: Well-healed scar right breast from prior biopsy, right breast grade 2 ptosis left breast grade 3 ptosis Palpation: Right breast: Multiple positional exam fibrocystic changes no dominant masses or nodules of concern Right axilla: No adenopathy of concern Left breast: Multi-positional exam fibrocystic changes no dominant masses or nodules of concern Left axilla: No adenopathy of concern Assessment and Plan Assessment: Impression/Plan: Indeterminate calcifications left breast stereotactic core biopsy recommended, repeat right breast mammogram in 6 months CC: Dr. Mendez Risk and benefits of the procedure discussed with the patient. Risks include but are not limited to bleeding, infection, reaction to the anesthetic. Alternatives such as watchful waiting or open biopsy were discussed but not recommended. The patient understands and wishes to proceed.
== END | disposition home or self-care (01) ==
LOC: WWCWWP 14:33
PROVIDERS: ATTEND Surgery
DX: Z53.9 Procedure and treatment not carried out, unspecified reason (principal)

== ENCOUNTER → 2021-10-02 | Outpatient (CLI) | payer MEDICARE, OTHER ==
--- NOTE | 2021-10-02 11:06 | MM ---
Reason for exam: additional evaluation requested from abnormal screening. Last mammogram was performed less than 1 month ago. History: Patient is postmenopausal and has history of high-risk lesion on a previous biopsy at age 69. Family history of breast cancer in 2 paternal aunts at age 60. High risk MG pre op needle loc RT of the right breast, December 19, 2019. Stereotactic core biopsy of the right breast, August 24, 2019. Physical Findings: Nurse did not find any significant physical abnormalities on exam. MG 3D Work Up W/Cad RODRI Bilateral CC with magnification, LM with magnification, and LM view(s) were taken. Prior study comparison: September 24, 2021, bilateral MG 3d screening mammo w/cad. September 12, 2020, mammogram, performed at [facility]. The breast tissue is heterogeneously dense. This may lower the sensitivity of mammography. Indeterminate grouped microcalcifications upper outer left breast, biopsy recommended. Probable dystrophic calcifications right breast, 6 month follow up recommended. These results were verbally communicated with the patient and result sheet given to the patient on 10/02/21. ASSESSMENT: Suspicious, BI-RAD 4 Suspicious, BI-RAD 4 abnormality in the left breast. Probably benign, BI-RAD 3 finding in the right breast. RECOMMENDATION: Stereotactic core biopsy of the left breast. Called office with mammographic findings and has scheduled an appointment for the patient for 10/02/21 at 2:[address] Kendall. Biopsy scheduled for 11/06/20 at 7:00. PRELIMINARY REPORT CALLED AND FAXED TO DR. KENDALL ON 10/02/21. Follow-up diagnostic mammogram of the right breast in 6 months.
== END ==
LOC: RADMAMWWP 08:57
PROVIDERS: ATTEND Surgery
DX: R92.8 Other abnormal and inconclusive findings on diagnostic imaging of breast (principal)
CPT/HCPCS: 77066; G0279; 77062

== ENCOUNTER → 2021-10-03 | Outpatient (CLI) | payer MEDICARE, OTHER ==
--- NOTE | 2021-10-06 07:24 | PE ---
EXAMINATION TYPE: PET CT fusion skull to thigh DATE OF EXAM: 10/03/2021 COMPARISON: Prior PET/CT April 30, 2018. Prior chest CT August 17, 2018 HISTORY: Solitary pulmonary nodule , recent abnormal outside CT. History of lupus and COPD. TECHNIQUE: Following the intravenous administration of 10.03 mCi of F-18 FDG, whole body images are performed from the skull base to the midthigh. Images are reviewed on the computer in the coronal, a xial, and sagittal planes. Reconstructed rotating images are created on independent workstation and reviewed on the computer. A localization and attenuation correction CT is performed in conjunction with the PET scan. Blood glucose level equals 87. SCAN: Initial Scan FINDINGS: SKULL BASE AND NECK: No new areas of abnormal hypermetabolic uptake. CHEST, MEDIASTINUM, AND HILAR REGION: Stable 7 mm left apical nodule axial image 46. Mild/moderate bi basilar linear scarring and/or atelectasis redemonstrated. Stable focal scarring in the left lung bas e axial image 93 with focal bronchiectatic change. No areas of abnormal hypermetabolic uptake. ABDOMEN AND PELVIS: Normal excretion. No adrenal masses. No areas of abnormal hypermetabolic uptake. OSSEOUS STRUCTURES: No areas of abnormal hypermetabolic uptake. OTHER CT: Coronary artery calcifications and mild cardiomegaly redemonstrated. Moderate calcified plaque in the abdominal aorta extends into the iliac branch vessels. Mild camila me sentery appearance redemonstrated without abnormal hypermetabolic uptake. Uterus now suspected surgic ally absent. IMPRESSION: No suspicious new abnormal hypermetabolic masses or nodules to suggest new malignancy.
== END | disposition home or self-care (01) ==
LOC: RADPETMAIN 15:11
PROVIDERS: ATTEND Internal Medicine Critical Care Medicine
DX: R91.1 Solitary pulmonary nodule (principal)
CPT/HCPCS: 78815; A9552

== ENCOUNTER → 2021-12-11 | Outpatient (CLI) | payer MEDICARE, OTHER ==
[2021-12-11 11:28] VITALS: BP 134/83; PULSE 83; RESP 18; TEMP 98.2
--- NOTE | 2021-12-11 11:51 | P.PN ---
Subjective Progress Note Date: 12/11/21 Principal diagnosis: Atypical lobular hyperplasia left breast stereo biopsy Maya is a 71-year-old white female status post left posterior tactic core biopsy on . Pathology revealed focal atypical lobular hyperplasia. The patient tolerated the procedure in stable condition but did develop some ecchymosis. Of concern is the fact that approximately [id number] she underwent a needle localization biopsy for atypical ductal hyperplasia which revealed a lobular neoplasia in the background of proliferative fibrocystic changes/sclerosing adenosis with calcification/radial scars/complex sclerosing lesion usual type ductal hyperplasia. The patient at that time he had difficulty with intubation and her tooth was noted to be chipped. She is concerned about surgical intervention secondary to the difficulty with intubation. Objective - Vital Signs Vital signs: Vital Signs Temp 98.2 F 12/11/21 11:20 Pulse 83 12/11/21 11:20 Resp 18 12/11/21 11:20 BP 134/83 12/11/21 11:20 Pulse Ox 95 12/11/21 11:20 Intake & Output 12/10/21 12/11/21 12/11/21 18:59 06:59 18:59 Weight 56.699 kg - Exam BMI 25 - Constitutional General appearance: Present: cooperative - EENT Eyes: Present: EOMI ENT: Present: hearing grossly normal - Neck Neck: Present: normal ROM - Respiratory Respiratory: bilateral: CTA - Cardiovascular Rhythm: regular Heart sounds: normal: S1, S2 - Integumentary Integumentary Comment(s): echymosis lateral aspect left breast related to recent stereo biopsy - Psychiatric Psychiatric: Present: appropriate affect, intact judgment & insight Assessment and Plan Assessment: Impression: Fibrocystic breast changes/recent stereotactic core biopsy left breast atypical lobular hyperplasia Plan: Needle localization excisional biopsy left breast, probable mastopexy incision, probable Onikul plastic tissue transfer At this time the patient has a trip planned and she has opted to have the procedure delayed until February. She will be seen a week prior to the procedure. CC: Dr. Mendez
== END ==
LOC: WWCWWP 10:39
PROVIDERS: ATTEND Surgery
DX: Z53.9 Procedure and treatment not carried out, unspecified reason (principal)

== ENCOUNTER → 2022-04-03 | Outpatient (CLI) | payer MEDICARE, OTHER ==
--- NOTE | 2022-04-03 13:18 | MM ---
Reason for Exam: Additional evaluation requested from prior study. Last screening mammogram was performed 6 month(s) ago. Patient History: Menarche at age 11. First Full-Term at age 21. Left ovary removed at age 30. Right ovary removed at age 67. Hysterectomy at age 67. Postmenopausal. 08/24/2019, Stereotactic Core Biopsy on the Right side. 12/05/2021, High risk Core Biopsy on the left side. 12/19/2019, High risk Core Biopsy on the right side. Paternal aunt had breast cancer, age 60. Paternal aunt had breast cancer, age 60. Risk Values: Chela 5 year model risk: 2.6%. NCI Lifetime model risk: 7.0%. Prior Study Comparison: 09/12/2020 Screening Mammogram, [facility]. 09/24/2021 Bilateral Screening Mammogram, [facility]. 10/02/2021 Bilateral Diagnostic Mammogram, [facility]. Tissue Density: Right: The breast tissue is extremely dense which could obscure a lesion on mammography. Findings: Analyzed By CAD. There are increasing regional calcifications within the medial right breast. Multiple surgical clips are adjacent from prior biopsy. Continued monitoring is recommended. Overall Assessment: Probably benign, BI-RAD 3 Management: Diagnostic Mammogram of both breasts in 6 months. A clinical breast exam by your physician is recommended on an annual basis and results should be correlated with mammographic findings. This exam should not preclude additional follow-up of suspicious palpable abnormalities. Results were given to the patient verbally at the time of exam. Electronically signed and approved by: Marshal Benz D.O. Radiologis
== END | disposition home or self-care (01) ==
LOC: RADMAMWWP 12:33
PROVIDERS: ATTEND Surgery
DX: R92.8 Other abnormal and inconclusive findings on diagnostic imaging of breast (principal)
CPT/HCPCS: 77065; G0279; 77061

== ENCOUNTER → 2022-04-10 | Outpatient (CLI) | payer MEDICARE, OTHER ==
[2022-04-10 12:36] VITALS: BP 134/74; PULSE 78; RESP 17; TEMP 97.8
--- NOTE | 2022-04-10 13:06 | P.PN ---
Subjective Progress Note Date: 04/10/22 Principal diagnosis: Atypical lobular hyperplasia left breast abnormal left breast mammogram Maya is a 71-year-old white female who is status post right breast needle localization and excisional biopsy for a stereotactic core biopsy which revealed atypical ductal hyperplasia. Pathology from the needle local excisional biopsy on 12-19-19 revealed lobular neoplasia and the background of proliferative fibrocystic changes/sclerosing adenosis with calcification/radial scar/complex sclerosing lesion usual type ductal hyperplasia. The patient related to the breast surgery has no complaints. This healed well without any complications. The patient however after the procedure in the recovery room noted that her tooth was chipped. She was told she was a difficult intubation. She is uncertain as to why she is a difficult intubation as a year ago she was intubated without difficulty. She states she also had a sore throat following the procedure which lasted for a week and was coughing up some blood. Throat is feeling better at this time. She had a bilateral mammogram on 09-24-21 after which additional views of both breast were ordered. She had additional views done on 10-02-21 and stero biopsy of the left breast was recommended and right breast repeat in 6 months. A stero biopsy of the left breast was done on 12-05-21 which showed atypical lobular hyperplasia. She had a right breast 3D mammogram on 04-03-22 which showed dense breast and reapeat bilateral mammogram in 6 months recommended. She is not complaining of any lumps masses or nodules of concern in either breast. Does not complain of any nipple discharge or skin changes. She was noted to have some "spots" on her lungs and she was recommended to have a PET scan this was negative. She was seen by Dr. Keyes regarding chemoprophylaxis and opted not to do this. She was given a prescription for anastrozole but did not get this filled. Family history: Mother: Colon cancer Brother: Kidney cancer Paternal aunts 2: Breast cancer Maternal aunt colon cancer Hormonal history: Menarche: 11 , one tubal, breast-fed: No, firstborn at 21 control pills: Negative Hormones: Negative Surgical history: Ectopic Appendectomy Hysterectomy Tonsillectomy Right breast surgery Medical history: Colon polyps Social history: Smoke: One half pack per day for 50 years Alcohol: Negative Drugs: Negative Review of systems: HEENT: Negative Breasts: As per HPI Heart: Shortness of breath Respiratory: Smoker GI: Negative : Negative Musculoskeletal: Arthritis Neurologic: Negative Psychiatric: Negative Endocrine: Negative ALLERGIES: As per HPI Objective - Vital Signs Vital signs: Vital Signs Temp 97.8 F 04/10/22 12:31 Pulse 78 04/10/22 12:31 Resp 17 04/10/22 12:31 BP 134/74 04/10/22 12:31 Pulse Ox 96 04/10/22 12:31 FiO2 Intake & Output 04/09/22 04/10/22 04/10/22 18:59 06:59 18:59 Weight 58.06 kg - Exam BMI: 25.9 - Constitutional General appearance: Present: cooperative - EENT Eyes: Present: EOMI ENT: Present: hearing grossly normal - Neck Neck: Present: normal ROM - Respiratory Respiratory: bilateral: CTA - Cardiovascular Heart sounds: normal: S1, S2 - Integumentary Integumentary: Present: normal turgor - Musculoskeletal Musculoskeletal: Present: gait normal - Psychiatric Psychiatric: Present: A&O x's 3, appropriate affect, intact judgment & insight - Additional findings Additional findings: Breast Exam: BRA: 34C inspection: Right breast nipple areolar complex grade 2 ptosis, left breast grade 2/3 ptosis asymmetry secondary to prior mastopexy incision on the right Palpation: Right breast: Multiple positional exam fibrocystic changes no dominant masses or nodules of concern Right axilla: No adenopathy of concern Left breast: Multiple positional exam fibrocystic changes no dominant masses or notches of concern Left axilla: No adenopathy of concern Assessment and Plan Assessment: Impression: Atypical hyperplasia left breast Fibrocystic breast changes Patient had tooth chipped prior surgery and is very concerned about intubation; lesion of concern had been in the upper outer quadrant [place] [id number] Plan: Left breast needle localization lumpectomy, onco-plastic tissue transfer, crescent mastopexy incision Risks and benefits of the procedure discussed with the patient. Risks include but are not limited to bleeding, infection, reaction to the anesthetic. If the lesion which could not be adequately removed and possible further tissue may need to be removed. Additionally the patient will discuss her difficult intubation with the professor of food biochemistry prior to the procedure. CC: Dr. Mendez
== END ==
LOC: WWCWWP 12:06
PROVIDERS: ATTEND Surgery
DX: N60.92 Unspecified benign mammary dysplasia of left breast (principal); N60.11 Diffuse cystic mastopathy of right breast; N60.12 Diffuse cystic mastopathy of left breast; N64.89 Other specified disorders of breast; Z91.048 Other nonmedicinal substance allergy status; F17.200 Nicotine dependence, unspecified, uncomplicated

== ENCOUNTER 2022-04-14 09:23 | Day surgery (SDC) | payer MEDICARE, OTHER ==
[~2022-04-14 09:23] MED LIST changes: -DEXAMETHASONE SOD PHOSPHATE 10 MG/ML 1 ML VIAL IV ONE; +DEXAMETHASONE SOD PHOSPHATE 4 MG/ML 1 ML VIAL IV ONE; -HEPARIN SODIUM,PORCINE 5,000 UNIT/ML 1 ML VIAL SQ ONE; +HEPARIN SODIUM,PORCINE/PF 5,000 UNIT/0.5 ML SYRINGE SQ PRN; +LIDOCAINE 1% (10MG/ML) FOR IV START INTRADERMA PRN; -LIDOCAINE 1% 20 ML VIAL (10MG/ML) FOR IV START INTRADERMA PRN; +METOCLOPRAMIDE 5 MG/ML 2 ML VIAL IVP PRN; -SCOPOLAMINE 1.5MG/72HR PATCH TRANSDERM ONE
[2022-04-14] MEDS ORDERED: ALPRAZolam 0.25 MG TAB ONE (10:03)
[2022-04-14] MEDS ORDERED: ALPRAZolam 0.25 MG TAB PO ONE (10:05)
[2022-04-14 10:39] LABS: Glucose,Whole Blood 83 mg/dL (70-110)
[2022-04-14 11:06] VITALS: TEMP 98.2
[2022-04-14] MEDS ORDERED: LIDOCAINE 2% INJ 20 MG/ML (2 ML VIAL) ONE (14:41)
[2022-04-14] MEDS ORDERED: LIDOCAINE 4% LTA KIT (4 ML) TOPICAL ONE (14:41)
[2022-04-14] MEDS ORDERED: SUCCINYLCHOLINE CHLORIDE 100 MG/5 ML SYR IV ONE (14:41)
[2022-04-14] MEDS ORDERED: GLYCOPYRROLATE 0.2 MG/ML 2 ML VIAL ONE (14:41)
[2022-04-14] MEDS ORDERED: fentaNYL (PF) 50 MCG/ML 2 ML AMP ONE (14:41)
[2022-04-14] MEDS ORDERED: PHENYLEPHRINE-0.9% NACL SYG 1,000 MCG/10 ML SYRINGE ONE (14:41)
[2022-04-14] MEDS ORDERED: PROPOFOL 10 MG/ML 20 ML VIAL IV ONE (14:41)
[2022-04-14] MEDS ORDERED: MIDAZOLAM 2 MG/2 ML VIAL ONE (14:41)
[2022-04-14] MEDS ORDERED: SODIUM CHLORIDE 0.9% 50 ML with ceFAZolin 2,000 MG IV ONE ×2 (14:46)
[2022-04-14] MEDS ORDERED: SODIUM CHLORIDE 0.9% 50 ML with ceFAZolin 1,000 MG IV ONE ×2 (14:46)
[2022-04-14] MEDS ORDERED: LIDOCAINE 2% INJ 20 MG/ML SQ ONE (15:26)
[2022-04-14] MEDS ORDERED: LACTATED RINGERS 1,000 ML IV ONE (15:53)
--- NOTE | 2022-04-14 16:03 | P.OP ---
Date of Procedure: 04/14/22 Preoperative Diagnosis: Atypical lobular hyperplasia left breast on stereo biopsy Postoperative Diagnosis: Same Procedure(s) Performed: needle localization left breast lumpectomy, crescent mastopexy Anesthesia: JUAN MANUELA Surgeon: Babita Kendall Estimated Blood Loss (ml): 10 IV fluids (ml): 300 Pathology: other (Breast tissue, radiographic specimen reveals the area of concern had been adequately sampled) Condition: stable Disposition: same day (Breast tissue, radiographic of specimen reveals area of concern adequately sampled) Indications for Procedure: Atypical lobular hyperplasia left breast Operative Findings: Dense breast tissue Description of Procedure: Following needle localization of the area of concern in the left breast the patient was brought to the operative suite. In the preoperative area skin markings were placed for a mastopexy incision. The crescent mastopexy incision was lysed. The skin was de-epithelialized. The breast parenchyma was entered and laterally dissection was performed down to the shaft of the needle. This area was grasped using an Allis clamp. The tissue was excised. The wound was irrigated. After assured that hemostasis was attained titanium clips were placed. 3-0 Vicryl was used to close the defect. The specimen was painted for orientation and radiograph revealed the clip of concern was removed. The subcutaneous tissue was closed using 3-0 Vicryl suture. This was followed by a 4-0 Monocryl subcuticular suture. The patient tolerated the procedure in stable condition. All instrument and sponge counts were correct at the end of the reji e.
--- NOTE | 2022-04-14 16:05 | P.DS ---
Providers Attending physician: Babita Kendall Primary care physician: Adam Mendez Plan - Discharge Summary Discharge Rx Participant: No New Discharge Prescriptions: No Action No Known Home Medications Discharge Medication List No Known Home Medications 10/02/21 [History] Follow up Appointment(s)/Referral(s): Babita Kendall MD [STAFF PHYSICIAN] - 04/24/22 2:00 pm Activity/Diet/Wound Care/Special Instructions: Do not drive if taking narcotic pain medication Do not drive for 24 hours from discharge from the hospital May shower after 48 hours Wear bra at all times Discharge Disposition: HOME SELF-CARE
[2022-04-14 18:06] VITALS: BP 141/79; PULSE 69; RESP 18
== END 2022-04-14 18:10 | disposition home or self-care (01) ==
LOC: OR 09:23
PROVIDERS: ATTEND Surgery
DX: N60.92 Unspecified benign mammary dysplasia of left breast (principal); N60.12 Diffuse cystic mastopathy of left breast; R92.0 Mammographic microcalcification found on diagnostic imaging of breast; E78.5 Hyperlipidemia, unspecified; J44.9 Chronic obstructive pulmonary disease, unspecified; F17.210 Nicotine dependence, cigarettes, uncomplicated
CPT/HCPCS: 76098; 19281; 19301; J2001 ×2; J2250; J1100; J2405; J0690; J3010; J2370; J0330; J2704; J1644; 88305; 88307

== ENCOUNTER → 2022-04-24 | Outpatient (CLI) | payer MEDICARE, OTHER ==
[2022-04-24 13:39] VITALS: BP 132/69; PULSE 84; RESP 16; TEMP 98.1
--- NOTE | 2022-04-24 13:41 | P.PN ---
Progress Note - Text Progress Note Date: 04/24/22 Maya is a 71 year old white female status post needle localization lumpectomy left breast and [id number]. Postoperatively she is doing well. Physical exam: Lungs: Wheezes left base Heart: Regular rate and rhythm Incision: Clean and dry at the lateral aspect of the incision it appears that the suture may be extruding slightly Impression/ plan: Patient doing well postop pathology benign Patient will continue to wear bra Follow-up in a week to ascertain if the suture should be cut Left breast mammogram in 6 months with physician exam at that time CC: Dr. Mendez
== END | disposition home or self-care (01) ==
LOC: WWCWWP 13:29
PROVIDERS: ATTEND Surgery
DX: Z53.9 Procedure and treatment not carried out, unspecified reason (principal)

== ENCOUNTER → 2022-05-07 | Outpatient (CLI) | payer MEDICARE, OTHER ==
[2022-05-07 13:57] VITALS: BP 153/81; PULSE 76; RESP 17; TEMP 98.7
--- NOTE | 2022-05-07 14:25 | P.PN ---
Progress Note - Text Progress Note Date: 05/07/22 Maya is a 71 year old white female status [place] [id number]. This was done for a stero biopsy showing atypia. Postoperatively she is doing well. Physical exam: Lungs: Wheezes left base Heart: Regular rate and rhythm Incision: Clean and dry at the lateral aspect of the incision it appears that the suture may be extruding slightly; this was clipped Impression/ plan: Patient doing well postop pathology benign Patient will continue to wear bra Left breast mammogram in 6 months with physician exam at that time CC: Dr. Mendez
== END ==
LOC: WWCWWP 13:46
PROVIDERS: ATTEND Surgery
DX: Z48.817 Encounter for surgical aftercare following surgery on the skin and subcutaneous tissue (principal)

== ENCOUNTER → 2022-10-15 | Outpatient (CLI) | payer MEDICARE, OTHER ==
--- NOTE | 2022-10-15 13:40 | MM ---
Reason for Exam: Follow-up at short interval from prior study. Last screening mammogram was performed 12 month(s) ago. Patient History: Menarche at age 11. First Full-Term at age 21. Left ovary removed at age 30. Right ovary removed at age 67. Hysterectomy at age 67. Postmenopausal. Previous Hyperplasia w/o Atypia at age 71. 04/14/2022, Lumpectomy on the Left side. 04/14/2022, Benign MG pre op needle loc LT on the left side. 08/24/2019, Stereotactic Core Biopsy on the Right side. 12/05/2021, High risk Core Biopsy on the left side. 12/19/2019, High risk Core Biopsy on the right side. Paternal aunt had breast cancer, age 60. Paternal aunt had breast cancer, age 60. Risk Values: Chela 5 year model risk: 2.6%. NCI Lifetime model risk: 6.7%. Tissue Density: The breast tissue is heterogeneously dense. This may lower the sensitivity of mammography. Findings: Analyzed By CAD. Postexcisional changes on both sides. Scattered benign necrosis calcifications. On the left, slightly increasing grouped microcalcifications 11:00 position middle to posterior depth. Given the patient's previous high risk lesions presenting as calcifications, further tissue sampling is recommended. Overall Assessment: Suspicious, BI-RAD 4 Management: Stereotactic Core Biopsy of the left breast. For the 11:00 increasing microcalcifications. Results were given to the patient verbally at the time of exam. Electronically signed and approved by: Baylee Urena M.D. Radiologist
== END | disposition home or self-care (01) ==
LOC: RADMAMWWP 12:18
PROVIDERS: ATTEND Surgery
DX: R92.8 Other abnormal and inconclusive findings on diagnostic imaging of breast (principal); Z80.3 Family history of malignant neoplasm of breast; Z78.0 Asymptomatic menopausal state; Z90.721 Acquired absence of ovaries, unilateral
CPT/HCPCS: 77066; G0279; 77062

== ENCOUNTER → 2022-10-15 | Outpatient (CLI) | payer MEDICARE, OTHER ==
[2022-10-15 14:09] VITALS: BP 132/75; PULSE 78; RESP 16; TEMP 98
--- NOTE | 2022-10-15 14:10 | P.PN ---
Subjective Progress Note Date: 10/15/22 Principal diagnosis: Abnormal calcifications left breast Atypical lobular hyperplasia left breast abnormal left breast mammogram Maya is a 71-year-old white female who is status post right breast needle localization and excisional biopsy for a stereotactic core biopsy which revealed atypical ductal hyperplasia. Pathology from the needle local excisional biopsy on 12-19-19 revealed lobular neoplasia and the background of proliferative fibrocystic changes/sclerosing adenosis with calcification/radial scar/complex sclerosing lesion usual type ductal hyperplasia. The patient related to the breast surgery has no complaints. This healed well without any complications. The patient however after the procedure in the recovery room noted that her tooth was chipped. She was told she was a difficult intubation. She is uncertain as to why she is a difficult intubation as a year ago she was intubated without difficulty. She states she also had a sore throat following the procedure which lasted for a week and was coughing up some blood. Throat is feeling better at this time. She had a bilateral mammogram on 09-24-21 after which additional views of both breast were ordered. She had additional views done on 10-02-21 and stero biopsy of the left breast was recommended and right breast repeat in 6 months. A stero biopsy of the left breast was done on 12-05-21 which showed atypical lobular hyperplasia. She had a right breast 3D mammogram on 04-03-22 which showed dense breast and reapeat bilateral mammogram in 6 months recommended. She is not complaining of any lumps masses or nodules of concern in either breast. Does not complain of any nipple discharge or skin changes. She was noted to have some "spots" on her lungs and she was recommended to have a PET scan this was negative. She was seen by Dr. Keyes regarding chemoprophylaxis and opted not to do this. She was given a prescription for anastrozole but did not get this filled. 10-15-22 The patient does not feel any new lumps masses or nodules of concern in either breast. She had a bilateral breast mammogram performed today on 1219. She did have a left breast stereotactic core biopsy on which revealed atypical lobular hyperplasia. This was followed by a left breast needle localization and excisional biopsy on . Pathology at that time revealed fibrous scar with fibroadenomatoid stromal hyperplasia. Additional breast tissue likewise revealed fibrous scar and no evidence of any cancer. As per report from the patient additional calcifications were seen in the left breast and another stereotactic core biopsy was recommended. [facility] printed report is not yet available. Family history: Mother: Colon cancer Brother: Kidney cancer Paternal aunts 2: Breast cancer Maternal aunt colon cancer Hormonal history: Menarche: 11 , one tubal, breast-fed: No, firstborn at 21 control pills: Negative Hormones: Negative Surgical history: Ectopic Appendectomy Hysterectomy Tonsillectomy Right breast surgery Medical history: Colon polyps Social history: Smoke: One half pack per day for 50 years Alcohol: Negative Drugs: Negative Review of systems: HEENT: Negative Breasts: As per HPI Heart: Shortness of breath Respiratory: Smoker GI: Negative : Negative Musculoskeletal: Arthritis Neurologic: Negative Psychiatric: Negative Endocrine: Negative ALLERGIES: As per HPI Objective - Vital Signs Vital signs: Vital Signs Temp 98.0 F 10/15/22 13:41 Pulse 78 10/15/22 13:41 Resp 16 10/15/22 13:41 BP 132/75 10/15/22 13:41 Pulse Ox 96 10/15/22 13:41 FiO2 Intake & Output 10/14/22 10/15/22 10/15/22 18:59 06:59 18:59 Weight 58.06 kg - Constitutional General appearance: Present: cooperative - EENT Eyes: Present: EOMI ENT: Present: hearing grossly normal - Neck Neck: Present: normal ROM - Respiratory Respiratory: bilateral: CTA - Cardiovascular Rhythm: regular Heart sounds: normal: S1, S2 - Gastrointestinal General gastrointestinal: Present: soft - Integumentary Integumentary: Present: normal turgor - Musculoskeletal Musculoskeletal: Present: gait normal - Psychiatric Psychiatric: Present: A&O x's 3, appropriate affect, intact judgment & insight - Additional findings Additional findings: Breast Exam: BRA: 36C inspection: Bilateral well-healed scars from prior surgery Palpation: Right breast: Multi-positional exam fibrocystic changes no dominant masses or nodules of concern Right axilla: No adenopathy of concern Left breast: Multi-positional exam no dominant masses or nodules of concern Left axilla: No adenopathy of concern Fungal infection under right breast Assessment and Plan Assessment: Impression: Redo graphic abnormality left breast by verbal report for which stereo biopsy is recommended Fungal infection under right breast Fibrocystic breast changes Plan: Nystatin for fungal infection Most likely stereo biopsy to be recommended of the left breast Will review radiograph with radiologist CC: Dr. Mendez
--- NOTE | 2022-10-15 14:14 | P.DS ---
Providers Attending physician: Babita Kendall Primary care physician: Stated None Plan - Discharge Summary New Discharge Prescriptions: New Nystatin 100,000Unit/gm Cream [Mycostatin Cream] 1 applic TOPICAL BID #30 gm Discharge Medication List Nystatin 100,000Unit/gm Cream [Mycostatin Cream] 1 applic TOPICAL BID #30 gm 10/15/22 [Rx]
== END ==
LOC: WWCWWP 12:24
PROVIDERS: ATTEND Surgery
DX: N60.11 Diffuse cystic mastopathy of right breast (principal); B36.8 Other specified superficial mycoses; Z80.0 Family history of malignant neoplasm of digestive organs; Z80.3 Family history of malignant neoplasm of breast; Z80.51 Family history of malignant neoplasm of kidney; F17.200 Nicotine dependence, unspecified, uncomplicated; Z91.048 Other nonmedicinal substance allergy status

== ENCOUNTER → 2022-10-29 | Day surgery (SDC) | payer MEDICARE, OTHER ==
[2022-10-29 07:41] VITALS: RESP 16
[2022-10-29 08:49] VITALS: BP 125/75; PULSE 68; TEMP 98.2
--- NOTE | 2022-10-29 08:54 | P.PCN ---
Date of Procedure: 10/29/22 Preoperative Diagnosis: Microcalcifications of concern left breast Postoperative Diagnosis: Same Procedure(s) Performed: Stereotactic core biopsy left breast Anesthesia: local Surgeon: Babita Kendall Pathology: other (Breast tissue left breast/radiograph reveals microcalcifications of concern in specimen) Condition: stable Disposition: same day Operative Findings: Microcalcifications of concern noted in radiograph of specimen Description of Procedure: The patient is a 72-year-old white female who on a routine mammogram performed on 12211126 was noted to have microcalcifications of concern in the left breast. A stereotactic core biopsy was recommended. She has had bilateral prior breast biopsies. Risks and benefits of the procedure was discussed with the patient. She understood and wished to proceed. Risks include but are not limited to bleeding, infection, reaction to the anesthetic. The patient was positioned prone on the lo-rad table. A director of operations home health film was obtained. The calcifications of concern were identified. The lesion was targeted. The breast was prepped using Betadine. 20 mL of 1% lidocaine was used to anesthetize the area of concern. A 9-gauge vacuum-assisted core rotating biopsy needle was driven to the correct coordinates. Prefire film was obtained. The needle was noted to be in the correct location. The needle was fired. A post-fire film was obtained. The needle was noted to be in the correct location. 14 core biopsy specimens were obtained. Radiograph of the specimen revealed the calcifications of concern had been sampled. A hydrogel marking clip was deployed. Radiograph revealed the clip to be in the correct lo cation. The patient tolerated procedure in stable condition. The patient will follow-up with Dr. White next week. The specimen was sent to pathology. cc: Dr. Mendez
--- NOTE | 2022-10-30 09:06 | MM ---
Date of Procedure: 10/29/22 Preoperative Diagnosis: Microcalcifications of concern left breast Postoperative Diagnosis: Same Procedure(s) Performed: Stereotactic core biopsy left breast Anesthesia: local Surgeon: Babita Kendall Pathology: other (Breast tissue left breast/radiograph reveals microcalcifications of concern in specimen) Condition: stable Disposition: same day Operative Findings: Microcalcifications of concern noted in radiograph of specimen Description of Procedure: The patient is a 72-year-old white female who on a routine mammogram performed on 12211126 was noted to have microcalcifications of concern in the left breast. A stereotactic core biopsy was recommended. She has had bilateral prior breast biopsies. Risks and benefits of the procedure was discussed with the patient. She understood and wished to proceed. Risks include but are not limited to bleeding, infection, reaction to the anesthetic. The patient was positioned prone on the lo-rad table. A de alcoholizer film was obtained. The calcifications of concern were identified. The lesion was targeted. The breast was prepped using Betadine. 20 mL of 1% lidocaine was used to anesthetize the area of concern. A 9-gauge vacuum-assisted core rotating biopsy needle was driven to the correct coordinates. Prefire film was obtained. The needle was noted to be in the correct location. The needle was fired. A post-fire film was obtained. The needle was noted to be in the correct location. 14 core biopsy specimens were obtained. Radiograph of the specimen revealed the calcifications of concern had been sampled. A hydrogel marking clip was deployed. Radiograph revealed the clip to be in the correct location. The patient tolerated procedure in stable condition. The patient will follow-up with Dr. White next week. The specimen was sent to pathology. [facility]
== END ==
LOC: RADMAMWWP 07:16
PROVIDERS: ATTEND Surgery
DX: N60.22 Fibroadenosis of left breast (principal); N60.12 Diffuse cystic mastopathy of left breast; R92.0 Mammographic microcalcification found on diagnostic imaging of breast
CPT/HCPCS: 88305; 88342; 88341; 19081; A4648; J2001

== ENCOUNTER → 2022-11-13 | Outpatient (CLI) | payer MEDICARE ==
[2022-11-13 13:48] VITALS: BP 143/81; PULSE 88; RESP 17; TEMP 97.6
--- NOTE | 2022-11-13 13:55 | P.PN ---
Subjective Progress Note Date: 11/13/22 Principal diagnosis: Fibrocystic breast disease Maya is a 72-year-old white female status post left breast are detected core biopsy and 1523. Pathology was benign concordant. She tolerated the procedure without difficulty. Objective - Vital Signs Vital signs: Vital Signs Temp 97.6 F 11/13/22 13:46 Pulse 88 11/13/22 13:46 Resp 17 11/13/22 13:46 BP 143/81 11/13/22 13:46 Pulse Ox 97 11/13/22 13:46 FiO2 Intake & Output 11/12/22 11/13/22 11/13/22 18:59 06:59 18:59 Weight 58.513 kg - Constitutional General appearance: Present: cooperative - EENT Eyes: Present: EOMI ENT: Present: hearing grossly normal - Neck Neck: Present: normal ROM - Respiratory Respiratory: bilateral: CTA - Cardiovascular Rhythm: regular Heart sounds: normal: S1, S2 - Integumentary Integumentary Comment(s): Biopsy site left breast clean and dry no evidence of infection or hematoma - Musculoskeletal Musculoskeletal: Present: gait normal - Psychiatric Psychiatric: Present: A&O x's 3, appropriate affect, intact judgment & insight Assessment and Plan Assessment: Impression: Patient status post left breast are detected core biopsy benign concordant Plan: Left breast mammogram in 6 months with physician exam at that time CC: Dr. Mendez
== END ==
LOC: WWCWWP 13:37
PROVIDERS: ATTEND Surgery
DX: Z85.3 Personal history of malignant neoplasm of breast (principal); Z91.048 Other nonmedicinal substance allergy status; F17.200 Nicotine dependence, unspecified, uncomplicated

== ENCOUNTER → 2023-04-30 | Outpatient (CLI) | payer MEDICARE ==
--- NOTE | 2023-04-30 11:01 | MM ---
Reason for Exam: Follow-up at short interval from prior study. Last screening mammogram was performed 7 month(s) ago. Patient History: Menarche at age 11. First Full-Term at age 21. Left ovary removed at age 30. Right ovary removed at age 67. Hysterectomy at age 67. Postmenopausal. Previous Hyperplasia w/o Atypia at age 71. 10/29/2022, Benign MG stereo VAD BX LT on the left side. 04/14/2022, Lumpectomy on the Left side. 04/14/2022, Benign MG pre op needle loc LT on the left side. 08/24/2019, Stereotactic Core Biopsy on the Right side. 12/05/2021, High risk Core Biopsy on the left side. 12/19/2019, High risk Core Biopsy on the right side. Paternal aunt had breast cancer, age 60. Paternal aunt had breast cancer, age 60. Risk Values: Chela 5 year model risk: 2.6%. NCI Lifetime model risk: 6.7%. Prior Study Comparison: 10/02/2021 Bilateral Diagnostic Mammogram, [facility]. 04/03/2022 Right MG 3D diag mammo w/cad RT, [facility]. 10/15/2022 Bilateral MG 3D diag mammo w/cad RODRI, [facility]. Tissue Density: Left: There are scattered fibroglandular densities. Findings: Analyzed By CAD. Postbiopsy changes on the right. No new suspicious masses, calcifications or distortions. Overall Assessment: Benign, BI-RAD 2 Management: Screening Mammogram of both breasts in 1 year. Results were given to the patient verbally at the time of exam. Patient should continue monthly self-breast exams. A clinical breast exam by your physician is recommended on an annual basis. This exam should not preclude additional follow-up of suspicious palpable abnormalities. Note on Chela scores and lifetime risk: 1. A Chela score greater than 3% is considered moderate risk. If this is the case, consider specialist referral to assess eligibility for a risk reducing agent. 2. If overall lifetime risk for the development of breast cancer is 20% or higher, the patient may qualify for future screening with alternating mammogram and breast MRI. Electronically signed and approved by: Bubba Diego DO
== END | disposition home or self-care (01) ==
LOC: RADMAMWWP 10:30
PROVIDERS: ATTEND Surgery
DX: R92.8 Other abnormal and inconclusive findings on diagnostic imaging of breast (principal); Z78.0 Asymptomatic menopausal state; Z80.3 Family history of malignant neoplasm of breast
CPT/HCPCS: 77061; 77065

== ENCOUNTER → 2023-05-07 | Outpatient (CLI) | payer MEDICARE ==
[2023-05-07 11:39] VITALS: BP 144/77; PULSE 74; RESP 16; TEMP 97.8
--- NOTE | 2023-05-07 11:55 | P.PN ---
Subjective Progress Note Date: 05/07/23 Principal diagnosis: Atypical hyperplasia bilateral breast/high risk breast cancer History of atypical hyperplasia ductal right breast 2019 and lobular left breast 2020 Maya is a 72-year-old white female who is being followed for atypical lobular hyperplasia of the breast. Her history is significant for the fact that she has had bilateral stereotactic core biopsies resulting in bilateral open breast biopsies. The patient in approximately 2019 underwent a right breast alfie reotactic core biopsy which revealed atypical ductal hyperplasia resulting in a needle localization and excision. This revealed no evidence of invasive cancer. The patient related to the breast surgery has no complaints. This healed well without any complications. The patient however after the procedure in the recovery room noted that her tooth was chipped. She was told she was a difficult intubation. She is uncertain as to why she is a difficult intubation as a year ago she was intubated without difficulty. She states she also had a sore throat following the procedure which lasted for a week and was coughing up some blood. The patient underwent a bilateral mammogram on after which stereo biopsy of the left breast was again recommended. On this occasion a stereo biopsy was performed on which showed atypical lobular hyperplasia. On a needle localization lumpectomy of this area was performed. This revealed fibrous scar with fibroadenomatoid stromal hyperplasia negative for in situ or invasive cancer. Her most recent bilateral mammogram was on 1219 after which a left breast stereotactic core biopsy was again recommended. This was performed on 1522 which was felt to be benign concordant. The patient presents today for evaluation she has had a left breast mammogram performed on 7722 which is benign BIRADS 2. She is not complaining of any new lumps masses or nodules of concern in either breast. She was seen by Dr. Cook regarding chemoprophylaxis and has declined at this time Family history: Mother: Colon cancer Brother: Kidney cancer Paternal aunts 2: Breast cancer Maternal aunt colon cancer Hormonal history: Menarche: 11 , one tubal, breast-fed: No, firstborn at 21 control pills: Negative Hormones: Negative Surgical history: Ectopic Appendectomy Hysterectomy Tonsillectomy Right breast surgery Medical history: Colon polyps Social history: Smoke: One half pack per day for 50 years Alcohol: Negative Drugs: Negative Review of systems: HEENT: Negative Breasts: As per HPI Heart: Shortness of breath Respiratory: Smoker GI: Negative : Negative Musculoskeletal: Arthritis Neurologic: Negative Psychiatric: Negative Endocrine: Negative ALLERGIES: As per HPI Objective - Constitutional General appearance: Present: cooperative - EENT Eyes: Present: EOMI ENT: Present: hearing grossly normal - Neck Neck: Present: normal ROM - Respiratory Respiratory: bilateral: CTA - Cardiovascular Rhythm: regular Heart sounds: normal: S1, S2 - Gastrointestinal General gastrointestinal: Present: soft - Integumentary Integumentary: Present: normal turgor - Musculoskeletal Musculoskeletal: Present: gait normal - Psychiatric Psychiatric: Present: A&O x's 3, appropriate affect, intact judgment & insight - Additional findings Additional findings: Breast Exam: BRA: 36C inspection: Bilateral well-healed scars from prior surgery Palpation: Right breast: Multi-positional exam fibrocystic changes no dominant masses or nodules of concern Right axilla: No adenopathy of concern Left breast: Multi-positional exam no dominant masses or nodules of concern Left axilla: No adenopathy of concern Assessment and Plan Assessment: Impression: History of bilateral stereotactic core biopsies and bilateral open biopsies for atypical hyperplasias Most recent stereotactic core biopsy was of the left breast 10-29-22 which was benign Left breast mammogram 7723 BIRAD 2 Plan: Close surveillance Bilateral mammogram in 6 months with physician exam at that time Patient has declined chemoprophylaxis, she has been seen by medical oncology and discussed this with them Plan: CC: Dr. Mendez
== END ==
LOC: WWCWWP 10:54
PROVIDERS: ATTEND Surgery
DX: Z71.2 Person consulting for explanation of examination or test findings (principal); N60.91 Unspecified benign mammary dysplasia of right breast; F17.210 Nicotine dependence, cigarettes, uncomplicated; Z85.3 Personal history of malignant neoplasm of breast; Z87.19 Personal history of other diseases of the digestive system; Z80.3 Family history of malignant neoplasm of breast; Z91.048 Other nonmedicinal substance allergy status

== ENCOUNTER 2023-10-14 11:11 | Day surgery (SDC) | payer MEDICARE ==
[2023-10-12 12:01] VITALS: BMI 27.2
[~2023-10-14 11:11] MED LIST changes: +ATROPINE SULFATE 0.4 MG/ML 1 ML VIAL IM ONE; -HEPARIN SODIUM,PORCINE/PF 5,000 UNIT/0.5 ML SYRINGE SQ PRN; -METOCLOPRAMIDE 5 MG/ML 2 ML VIAL IVP PRN; -Pre Op ABX Message 1 EACH MISC MISCELLANE ONE; +droPERidol 5 MG/2 ML VIAL IVP PRN
[2023-10-14] MEDS: LACTATED RINGERS 1,000 ML IV SCH ×2 (11:58→12:09)
[2023-10-14] MEDS ORDERED: SUCCINYLCHOLINE CHLORIDE 200 MG/10 ML VIAL IV ONE (12:10)
[2023-10-14] MEDS ORDERED: PROPOFOL 10 MG/ML 20 ML VIAL IV ONE (12:10)
[2023-10-14] MEDS ORDERED: fentaNYL (PF) 50 MCG/ML 2 ML AMP ONE (12:10)
[2023-10-14] MEDS ORDERED: LIDOCAINE 1% INJ 10MG/ML (20 ML MDV) ONE (12:10)
[2023-10-14 12:12] VITALS: TEMP 98
--- NOTE | 2023-10-14 13:48 | XR ---
EXAMINATION TYPE: XR chest 1V portable DATE OF EXAM: 10/14/2023 COMPARISON: NONE HISTORY: Post bronchoscopy. TECHNIQUE: Single frontal view of the chest is obtained. IMPRESSION: There is hazy opacity in the left lung base which could represent a component of pneumonia. The cardiac silhouette is mildly enlarged there are scattered interstitial changes bilaterally which are likely chronic.
--- NOTE | 2023-10-14 14:09 | FL ---
EXAMINATION TYPE: FL bronchoscopy DATE OF EXAM: 10/14/2023 CLINICAL HISTORY: Fluoroscopy TECHNIQUE: Fluoroscopy. COMPARISON: None. FINDINGS: Fluoroscopic guidance was provided during procedure of 44 seconds. A DAP was not provided. IMPRESSION: As Above.
[2023-10-14 14:17] VITALS: BP 126/78; PULSE 66; RESP 18
--- NOTE | 2023-10-14 20:41 | PCN ---
PROCEDURE NOTE PROCEDURE PERFORMED: Bronchoscopy, airway examination, therapeutic lavage, BAL, brushes lingula, biopsies lingula, and BAL lingula. Biopsies were both endobronchial and transbronchial biopsies. PREOPERATIVE DIAGNOSIS: Inflammatory/infectious lesion, lingula, versus neoplastic lesion. FIRST PRODUCTION CONTROL COORDINATING CLERK: Dr. Angeline Puente. There was informed consent and universal time-out. ANESTHESIA PROVIDED: General anesthesia. DESCRIPTION OF PROCEDURE: Finally, the patient's procedure was done in room #1 [facility]. After the patient was under the effects of general anesthesia, and intubated, the bronchoscope was inserted through the bronchoscope adapter connected to the endotracheal tube. The bronchoscope was pushed through the endotracheal tube into the trachea. The trachea appeared normal. Tracheal cheo was sharp. We did a quick and thorough evaluation of the right lung. This included right upper lobe and its 3 segments, right middle lobe and its 2 segments, and right lower lobe and its 5 segments. All areas were completely normal. There was no gross abnormality, endobronchial mass, tumor, erythema, or hyperemia on the right side. On the left side, again the airways were evaluated. The left upper lobe proper and its 2 segments, the lingula and its 2 segments, and left lower lobe and its 4 segments were evaluated. Again, there was mostly normal anatomy. There were some secretions noted in the lingula. This is where we are going to sample. There was no endobronchial mass or tumor. The mucosa appeared relatively normal. Next, under fluoroscopic guidance. We did brushes to the lingula. Next, we did multiple endobronchial transbronchial biopsies under fluoroscopic guidance to the lingula. The biopsy samples included about 8 or 9 pieces. Finally, we did a formal BAL in the lingula. The patient tolerated the procedure well. There was no bleeding. We ensured that there was hemostasis and the scope was withdrawn after we ensured hemostasis. There was no obvious pneumothorax under fluoro. A formal chest x-ray was ordered. The patient tolerated the procedure well. The specimens will be sent to the laboratory for analysis. I did speak to the patient's daughter, Estrella, after the procedure. MMODL / IJN: [id number] /
[2023-10-15 04:44] LABS: Appearance,BF Cloudy (Clear); RBC, Body Fluid 955 /UL (0-2000)
[2023-10-19 10:01] LABS: Nucleated Cells, Body Fluid 45 /UL
== END 2023-10-14 14:37 | disposition home or self-care (01) ==
LOC: ORWHC2ENDO 11:11
PROVIDERS: ATTEND Internal Medicine Critical Care Medicine
DX: R91.1 Solitary pulmonary nodule (principal); J44.9 Chronic obstructive pulmonary disease, unspecified; E75.6 Lipid storage disorder, unspecified; E78.5 Hyperlipidemia, unspecified; G47.33 Obstructive sleep apnea (adult) (pediatric); Z83.3 Family history of diabetes mellitus; Z87.891 Personal history of nicotine dependence; Z85.118 Personal history of other malignant neoplasm of bronchus and lung
CPT/HCPCS: 87798 ×3; 87496; 87498; 87529; 88104; 88108; 88305; 89050; 87502; 87634; 87070; 87205; 87116; 87102; 87206; 87635; 71045; 31628; 31623; 31624; J0330; J1100; J2405; J2001; J3010; J2704

== ENCOUNTER → 2023-11-05 | Outpatient (CLI) | payer BC ==
--- NOTE | 2023-11-05 13:30 | MM ---
Reason for Exam: Additional evaluation requested from prior study. Last mammogram was performed 1 year(s) and 1 month(s) ago. Patient History: Menarche at age 11. First Full-Term at age 21. Left ovary removed at age 30. Right ovary removed at age 67. Hysterectomy at age 67. Postmenopausal. Previous Hyperplasia w/o Atypia at age 71. 10/29/2022, Benign MG stereo VAD BX LT on the left side. 04/14/2022, Lumpectomy on the Left side. 04/14/2022, Benign MG pre op needle loc LT on the left side. 08/24/2019, Stereotactic Core Biopsy on the Right side. 12/05/2021, High risk Core Biopsy on the left side. 12/19/2019, High risk Core Biopsy on the right side. Paternal aunt had breast cancer, age 60. Paternal aunt had breast cancer, age 60. Risk Values: Chela 5 year model risk: 2.6%. NCI Lifetime model risk: 6.3%. Prior Study Comparison: 04/20/2018 Screening Mammogram, Unknown. 05/03/2018 Right Diagnostic Mammogram, [facility]. 06/28/2019 Bilateral Screening Mammogram, [facility]. 08/04/2019 Right Diagnostic Mammogram, [facility] 06/18/2020 Right Diagnostic Mammogram, [facility]. 09/12/2020 Screening Mammogram, [facility]. 09/24/2021 Bilateral Screening Mammogram, [facility]. 10/02/2021 Bilateral Diagnostic Mammogram, [facility]. 04/03/2022 Right MG 3D diag mammo w/cad RT, [facility]. 10/15/2022 Bilateral MG 3D diag mammo w/cad RODRI, [facility]. 04/30/2023 Left MG 3D diag mammo w/cad LT, [facility]. Tissue Density: The breast tissue is extremely dense which could obscure a lesion on mammography. Findings: Analyzed By CAD. Pattern appears symmetrical and stable. Multiple benign-appearing calcifications are within the right breast. There are scattered benign-appearing calcifications within the left breast. Postbiopsy changes are within the left breast. Bilateral surgical clips are present. No suspicious interval change. No suspicious groups of microcalcifications, spiculated or lobular masses, architectural distortion or other secondary signs of malignancy are mammographically apparent. Overall Assessment: Benign, BI-RAD 2 Management: Screening Mammogram of both breasts in 1 year. A negative mammogram report should not preclude additional follow up of suspicious palpable abnormalities. Patient should continue monthly self breast exam. A clinical breast exam by your physician is recommended on an annual basis and results should be correlated with mammographic findings. Electronically signed and approved by: Marshal Benz D.O. Radiologis
== END | disposition home or self-care (01) ==
LOC: RADMAMWWP 12:43
PROVIDERS: ATTEND Surgery
DX: R92.343 Mammographic extreme density, bilateral breasts (principal); Z80.3 Family history of malignant neoplasm of breast; Z78.0 Asymptomatic menopausal state
CPT/HCPCS: 77062; 77066